=== PATIENT | male | born 1970 | race Caucasian/White ===

== ENCOUNTER 2019-08-04 09:00 | Outpatient (RCR) | payer OTHER, SELFPAY ==
--- NOTE | 2019-07-01 13:57 | PCOTNOTE ---
Patient did not come to appointment today 07/01/19 and did not call.
--- NOTE | 2019-07-14 10:36 | OTOPEVAL ---
OT RE-EVALUATION AND POC UPDATE 07/14/19 Thank you for referring this patient to [facility]. Recommend continued skilled OT 1x/week for 4 weeks. Please review, sign, date and return this re-assessment summary ALEISHA. I agree with and certify that the following plan of care is medically necessary. Referring Physician Date Attending Provider: Reji Nix MD *OT Outpatient Re-Evaluation Therapy Assessment Status Assessment Status Re-evaluation Evaluation Information Diagnosis dislocated right thumb s/p closed reduction Onset initial injury: 03/29/19 Additional Evaluation Detail 05/28/19 - surgical repair of radial and ulnar collateral ligaments of the right thumb MCP, had c-wire across MCP joint x4 weeks 06/25/19 - c-wire removal Subjective Information Marcell presents today for re- Query Text:As Reported By Patient/ evaluation. He has not been to Family therapy since his initial evaluation on 06/20/19 due to cancellations. He reports no functional gains at this time as his hand continues to be stiff, edematous, and painful. He has been using compensatory techniques (using the left hand) for ADLs and cooking tasks. Pain Assessment Timing of Pain Assessment Timing of Pain Assessment Re-assessment Pain Scale Pain Scale Used Numeric (1 - 10) Self Report Pain Assessment Right Hand(s) Reported Pain Level 7 Pain Description Aching,Dull Pain Frequency Intermittent Current Pain Intensity 7 Lowest Pain Intensity 0 Greatest Pain Intensity 7 Pain Aggravating Factors Exercise/Activity,Lifting Pain Relief Interventions Used By Medication Patient Interventions Used By Clinicians Education,Exercise, Mobilization Upper Extremity Range of Motion Finger Range of Motion Right Reason Not Measured WNL/Right Thumb Range of Motion Right Thumb MCP Flexion - Active 30 Thumb MCP Flexion - Passive 35 Thumb MCP Extension - Active -25 Thumb MCP Extension - Passive -10 Thumb IP Flexion - Active 45 Thumb IP Flexion - Passive 55 Thumb IP Extension - Active -15 Thumb IP Extension - Passive 10 hyperextension Thumb Limitations Contracture,Edema,Muscle Weakness,Pain,Soft Tissue Restriction Thumb Range of Motion Comments CMC abduction: 50*
--- NOTE | 2019-07-28 10:02 | PCOTNOTE ---
Pt called and cancelled appt this date. Pt did not give a reason he cancelled.
--- NOTE | 2019-08-11 09:20 | PCOTNOTE ---
Patient did not show or call to cancel his re-evaluation this AM. Attempted to call patient and he did not answer. Left a voicemail about returning our call to reschedule his re-evaluation to continue treatment.
--- NOTE | 2019-08-29 13:47 | PCOTNOTE ---
OT DISCHARGE NOTE 08/29/2019 Marcell has not returned to therapy since 08/04/2019. He has had multiple cancellations and no shows. At this time he is being discharged from skilled OT with goals not met. Thank you for referring this patient to [facility]. Please review, sign, date and return this D/C Note ALEISHA. I agree with and certify that the following plan of care is medically necessary. Referring Physician Date Attending Provider: Reji Nix MD
== END 2019-08-29 15:02 | disposition home or self-care (01) ==
LOC: ANHOT 09:00
PROVIDERS: PCP Family Medicine; Visit Provider Plastic Surgery
DX: M25.641 Stiffness of right hand, not elsewhere classified (principal); Z98.890 Other specified postprocedural states
CPT/HCPCS: 97035; 97110; 97140; 97598

== ENCOUNTER 2020-05-11 10:54 | Emergency (ER) | payer BC, SELFPAY ==
[2020-05-11 11:05] VITALS: BP 159/94; PULSE 94; RESP 18; TEMP 36.3; O2SAT 99
--- NOTE | 2020-05-11 11:05 | ED.EAR ---
HPI - Ear Problem General Chief complaint: Ear Stated complaint: Ear problem Time Seen by Provider: 05/11/20 11:06 Source: patient and RN notes reviewed Mode of arrival: ambulatory Limitations: no limitations History of Present Illness HPI Narrative: 50-year-old male presents with concern for right ear pressure, decreased hearing. Denies ear pain. He denies rhinorrhea, nasal congestion, sore throat, fever, drainage from the ear. Reports he tried to clean out his ear with a high-pressure setting on his shower today without success. MD Complaint: ear pain Location: right ear Related Data Home Medications Medication Instructions Recorded Confirmed amitriptyline 50 mg PO DIRECTED 05/11/20 05/11/20 [id number]-[id number] 1 tablet PO DAILY 05/11/20 05/11/20 fenofibrate 160 mg PO DAILY 05/11/20 05/11/20 folic acid 1 mg PO DAILY 05/11/20 05/11/20 metoprolol succinate 200 mg PO DAILY 05/11/20 05/11/20 quetiapine 100 mg PO DAILY 05/11/20 05/11/20 Allergies Allergy/AdvReac Type Severity Reaction Status Date / Time No Known Allergies Allergy Other Uncoded 05/11/20 11:00 Review of Systems Review of Systems: Narrative: CONSTITUTIONAL: Denies malaise, chills, sweats, or fever. EYES: Denies visual changes, redness, or discharge. ENT: Denies rhinorrhea, congestion, sinus pain, or sore throat. Reports right ear pressure, decreased hearing, denies otalgia CARDIOVASCULAR: Denies chest pain, palpitations, or edema. RESPIRATORY: Denies cough or dyspnea. SKIN: Denies rash or itching. MUSCULOSKELETAL: Denies myalgia. NEUROLOGIC: Denies headache. All systems reviewed & are unremarkable except as noted in HPI and below PMFSH Comments At time of signature, agree with nursing past medical, surgical, social and family history. There is no relevant family history pertinent to the presenting complaint Exam Narrative: Exam Narrative: GENERAL: Well-appearing, well-nourished, and in no acute distress. HEAD: Normocephalic, atraumatic. EYES: PERRLA, conjunctivae clear ENT: Nares clear. Mucous membranes moist. TM pearly not visible due to cerumen impaction; no tragal tenderness. Oropharynx without erythema or lesions. Tonsils not enlarged and without exudate. NECK: Supple. No lymphadenopathy. CHEST: No respiratory distress. Speaks in full sentences. HEART: Regular rate and rhythm. SKIN: Warm, dry, no rash. NEURO: Alert and oriented x3. PSYCH: Normal mood and affect Course Course Emergency Course: Patient is aware of diagnosis, understands and agrees to treatment plan. Anticipatory guidance given. Patient agrees to follow-up as directed and is aware of reasons to seek care at the emergency department. Portions of this record may have been created with voice recognition software Vital Signs Vital signs: Vital Signs Temperature 97.4 F L 05/11/20 11:05 Pulse Rate 94 05/11/20 11:05 Respiratory Rate 18 05/11/20 11:05 Blood Pressure 159/94 H 05/11/20 11:05 Pulse Oximetry 99 05/11/20 11:05 Temperature 97.4 F L 05/11/20 11:05 Pulse Rate 94 05/11/20 11:05 Respiratory Rate 18 05/11/20 11:05 Blood Pressure 159/94 H 05/11/20 11:05 Pulse Oximetry 99 05/11/20 11:05 Reviewed. Procedures Ear Wax Removal Right Ear: Ear Wax Removal Date: 05/11/20 Ear Wax Removal Time: 11:20 Cerumenolytic Used: 5-10% Sodium Bicarb solution Results: Re-examined: some cerumen remains TM Examination: other (Unable to visualize TM) Ear Canal Exam: atraumatic Patient Tolerated Procedure: well Complications: no problems Technique: ear canal irrigated and ear canal curetted Medical Decision Making MDM Narrative Medical decision making narrative: Exam findings show no acute concerns or changes; patient is non-toxic appearing and is in no distress. Patient is appropriate for outpatient treatment and follow-up. Differential Diagnosis Differential Diagnosis: Otitis media, ot
== END 2020-05-11 12:12 | disposition home or self-care (01) ==
PROVIDERS: Emergency Provider Nurse Practitioner; PCP Family Medicine
DX: H61.21 Impacted cerumen, right ear (principal); I10 Essential (primary) hypertension; J45.909 Unspecified asthma, uncomplicated; M19.90 Unspecified osteoarthritis, unspecified site; F41.9 Anxiety disorder, unspecified; F32.9 Major depressive disorder, single episode, unspecified
CPT/HCPCS: 69210; 99212; A9270; G0463

== ENCOUNTER 2021-03-15 18:54 | Inpatient (IN) | payer BC, SELFPAY ==
--- NOTE | ~2021-03-15 | XR_ITS ---
EXAMINATION: XR chest 1V portable EXAM DATE: 03/15/2021 23:26 INDICATION: Altered mental status. TECHNIQUE: Portable AP frontal chest x-ray was obtained. Comparison is made to prior examination from 12/27/2015. FINDINGS: The lungs are clear. There are no pleural effusions. The cardiomediastinal silhouette is within normal limits. There is no pneumothorax suspected. The bones and soft tissues are unremarkab le. IMPRESSION: No acute cardiopulmonary findings. Reviewed, dictated and finalized at location G.
--- NOTE | ~2021-03-15 | MR_ITS ---
EXAMINATION: MR cervical spine wo con DATE: 03/22/2021 10:09 INDICATION: Weakness TECHNIQUE: Magnetic resonance imaging (MRI) of the cervical spine was performed without intravenous c ontrast. Sequences included sagittal T2-weighted FSE, sagittal T2-weighted FS FSE, sagittal T1-weight ed FSE, axial MERGE and axial T2-weighted FSE. COMPARISON: Cervical spine radiograph dated 05/13/2009 FINDINGS: Mild cervicothoracic levocurvature. Sagittal alignment is normal. Vertebral body heights are normal. There is diffuse red marrow reexpansion throughout the cervical spine is isointense on T1-weighted i mages to the cervical disks. Normal disc heights and signal. Cord signal intensity is normal. Cervica l soft tissues are unremarkable. Assessment for severity of facet and uncovertebral osteoarthritis is somewhat limited by motion artifact or blurring on multiple sequences. The following disc levels are specifically discussed: C2-C3: The disc does not extend beyond the endplate margin. There is no uncovertebral joint osteoarth ritis. There is mild to moderate right and mild left facet joint osteoarthritis. There is mild left n eural foraminal stenosis. There is no central canal stenosis. C3-C4: Disc is minimally bulging. There is mild right uncovertebral joint osteoarthritis. There is mi ld bilateral facet joint osteoarthritis. There is mild right neural foraminal stenosis. There is no c entral canal stenosis. C4-C5: Disc is mildly bulging. There is mild right and moderate left uncovertebral joint osteoarthrit is. There is mild to moderate bilateral facet joint osteoarthritis. There is mild bilateral neural fo raminal stenosis. There is minimal central canal stenosis. C5-C6: Disc is mildly bulging with annular fissure. There is mild right and moderate left uncovertebr al joint osteoarthritis. There is moderate right and severe left facet joint osteoarthritis. There is mild bilateral, right greater than left, neural foraminal stenosis. There is mild central canal sten osis. C6-C7: Disc is bulging with annular fissure and suggestion of a small central disc extrusion extendin g up to 4 mm caudal to the level of the superior endplate of C7. There is mild left and moderate righ t uncovertebral joint osteoarthritis. There is mild bilateral facet joint osteoarthritis. There is al tered left and mild to moderate right neural foraminal stenosis. There is mild central canal stenosis . C7-T1: Disc is minimally bulging. There is no uncovertebral joint osteoarthritis. There is mild left facet joint osteoarthritis. There is no neural foraminal stenosis. There is no central canal stenosis . IMPRESSION: 1. Mild to moderate cervical spondylosis. Assessment of severity of the facet and uncovertebral osteo arthritis is however somewhat limited by some motion artifact or blurring on multiple sequences. Reviewed, dictated and finalized at location A. IMPRESSION: 1. Mild to moderate cervical spondylosis. Assessment of severity of the facet a nd uncovertebral osteoarthritis is however somewhat limited by some motion elsa fact or blurring on multiple sequences.
--- NOTE | ~2021-03-15 | US_ITS ---
US renal BI 03/16/2021 09:21 Procedure: Realtime transabdominal ultrasound of the kidneys and bladder. Indication: Acute renal insufficiency Comparison: No prior studies for comparison. Findings: Renal echotexture is normal bilaterally without hydronephrosis, contour deforming mass or r enal calculus. The right kidney measures 8.4 cm and left kidney measures 9.9 cm. Bladder within norm al limits. Impression: 1: Unremarkable renal ultrasound. No stones, masses or hydronephrosis. Reviewed, dictated and finalized at location A. Impression: 1: Unremarkable renal ultrasound. No stones, masses or hydronephrosis.
--- NOTE | ~2021-03-15 | CT_ITS ---
EXAMINATION: CT lumbar spine gela joy EXAM DATE: 03/18/2021 16:01 INDICATION: Found down, weakness TECHNIQUE: Spiral CT lumbar spine was performed without contrast. Axial, coronal and sagittal images of the lumbar spine were reviewed. The dose-length product (DLP) for this examination was 253.96 mGy- cm. The exposure was tailored according to patient size (auto mA exposure control), and iterative re construction (ASIR) was used as additional dose reduction technique. There is no prior study for hernandez vizcaino. FINDINGS: There is no evidence of acute lumbar fracture. There is no disc space widening or traumatic vertebra l body subluxation suspected. Paraspinal soft tissue is unremarkable. There is mild to moderate dis c disease at L5-S1 with 3 mm retrolisthesis. Mild disc disease at the other lumbar levels. Mild mid a nd lower lumbar facet arthropathy. There is moderate left neural foraminal stenosis L5-S1, mild on th e right and bilaterally at L4-5. There is no hydronephrosis. Some nonspecific lower retroperitoneal fat stranding. A detailed level by level evaluation of spondylosis can be added as addendum if requested. IMPRESSION: 1. L5-S1 grade 1 retrolisthesis, moderate left neural foraminal stenosis. 2. Otherwise mild lumbar spondylosis. No acute lumbar findings. 3. Nonspecific lower retroperitoneal fat stranding. No hydronephrosis. Reviewed, dictated and finalized at location A.
--- NOTE | ~2021-03-15 | CT_ITS ---
EXAMINATION: [facility] EXAM DATE: 03/15/2021 23:54 INDICATION: Altered mental status. TECHNIQUE: Spiral CT of the head was performed without contrast. Axial, coronal and sagittal images were reviewed. The dose-length product (DLP) for this examination was 605.33 mGy-cm. The exposure w as tailored according to patient size, and iterative reconstruction (ASIR) was used as additional dos e reduction technique. Comparison is made to prior examination from 08/04/2017. FINDINGS: There is no acute intraparenchymal hemorrhage. No evidence of intraparenchymal brain mass lesion. Mild to moderate cerebral atrophy. No evidence of acute infarction. There is no mass effect or midline shift. The ventricles are normal in size. There are no extra-axial collections. There a re no acute calvarial fractures. The orbits are unremarkable. Soft tissue is unremarkable. The visu alized sinuses and mastoid air cells are well aerated. IMPRESSION: 1. No acute intracranial findings. Reviewed, dictated and finalized at location G.
--- NOTE | ~2021-03-15 | MR_ITS ---
EXAMINATION: MR brain/brain stem wo con DATE: 03/16/2021 13:13 INDICATION: Generalized weakness and alteration of awareness. TECHNIQUE: Magnetic resonance imaging (MRI) of the brain and brainstem was performed without intraven ous contrast. Sequences included sagittal and axial T1-weighted SE, axial diffusion-weighted FS SE, a xial T2*-weighted GRE, axial T2-weighted FLAIR, and axial T2-weighted FSE. Apparent diffusion coeffic ient (ADC) maps were created. COMPARISON: Head CT dated 03/15/2021 FINDINGS: There are no areas of restricted diffusion to suggest acute infarction. No intracranial hemorrhage or abnormal intracranial mass lesion. There are scattered areas of nonspecific increased T2-weighted si gnal intensity in the cerebral white matter, predominantly involving the periventricular white matter . There are no intraparenchymal signal abnormalities seen on the other pulse sequences. Symmetric pro minence of the sulci and ventricles consistent with mild diffuse cerebral volume loss which is dispro portionate for age and which may be related to provided history of alcohol dependence. There are no a bnormal extra-axial fluid collections. Flow voids are seen in the cerebral arteries on the T2-weighte d sequences consistent with their expected patency. Small right mastoid effusion. Visualized orbits a nd soft tissues are unremarkable. IMPRESSION: 1. No acute intracranial process. Reviewed, dictated and finalized at location A.
--- NOTE | ~2021-03-15 | MR_ITS ---
EXAMINATION: MR lumbar spine [facility] EXAM DATE: 03/19/2021 14:47 INDICATION: Fell last night, urinary retention. TECHNIQUE: Multi-sequential, multiplanar MR images of the lumbar spine were obtained without contrast . Sagittal T1, T2, T2 fat saturation images. Axial T2 weighted images. Correlation is made to CT julian ar spine 03/18/2021. FINDINGS: There is 3 mm retrolisthesis L5 on S1 with mild to moderate disc disease at this level. The vertebral bodies are otherwise aligned. The vertebral body and disc heights are otherwise well maint ained. There are no suspicious marrow signal abnormalities. Paraspinal soft tissue is unremarkable. T he conus medullaris terminates at the L1/2 level and has normal signal intensity and morphology. Inci dental note made of severely distended bladder. Level by level evaluation: T12-L1: Disc does not extend beyond the endplate margin. Facet arthropathy: None. Neural foraminal stenosis: No stenosis. Central canal stenosis: No stenosis. L1-L2: Disc does not extend beyond the endplate margin. Facet arthropathy: None. Neural foraminal stenosis: No stenosis. Central canal stenosis: No stenosis. L2-L3: Disc does not extend beyond the endplate margin. Facet arthropathy: Mild. Neural foraminal stenosis: No stenosis. Central canal stenosis: No stenosis. L3-L4: There is a minimal diffuse disc bulge. Facet arthropathy: Mild. Neural foraminal stenosis: No stenosis. Central canal stenosis: No stenosis. L4-L5: There is a minimal diffuse disc bulge. Facet arthropathy: Mild. Neural foraminal stenosis: Mild bilateral. Central canal stenosis: No stenosis. L5-S1: There is a mild diffuse disc bulge. Facet arthropathy: Mild. Neural foraminal stenosis: Mild to moderate left, mild right. Central canal stenosis: Mild. IMPRESSION: 1. Severely distended bladder. 2. L5-S1 grade 1 retrolisthesis, mild to moderate spondylosis. 3. No significant central canal stenosis. Normal conus medullaris signal. Reviewed, dictated and finalized at location A.
--- NOTE | ~2021-03-15 | XR_ITS ---
EXAMINATION: XR chest 2V EXAM DATE: 03/19/2021 14:51 INDICATION: Abnormal physical exam, lung crackles. TECHNIQUE: Frontal and lateral projections of the chest obtained and reviewed. Comparison is made to prior examination from 03/15/2021. FINDINGS: The lungs are clear. There are no pleural effusions. The cardiomediastinal silhouette is within normal limits. There is no pneumothorax suspected. There is an old left midclavicular shaft fracture. IMPRESSION: No acute cardiopulmonary findings. Reviewed, dictated and finalized at location A.
[2021-03-15 18:53] VITALS: BP 157/98; PULSE 115; RESP 24; TEMP 36.6; O2SAT 100
[2021-03-15 19:30] LABS: Basophils Absolute Auto 0.1 K/mm3 (0.0-0.1); Basophils Percent Auto 0.5 % (0.2-1.2); Hematocrit 47.9 % (42.0-52.0); Hemoglobin 16.8 g/dL (14.0-18.0); Immature Granulocyte Absolute 0.37 K/mm3 (0.00-0.031); Immature Granulocyte Percent A 2.8 % (0-0.5); Lymphocytes Absolute Auto 1.81 K/mm3 (0.9-3.2); Lymphocytes Percent Auto 13.6 % (18.3-44.2); Mean Corpuscular HGB Conc 35.1 g/dl (32-36); Mean Corpuscular Hemoglobin 31.3 pg (26-34); Mean Corpuscular Volume 89.2 fl (80-100); Monocytes Absolute Auto 1.6 K/mm3 (0.1-0.6); Monocytes Percent Auto 12.1 % (2.6-8.5); Neutrophils Absolute Auto 9.5 K/mm3 (1.3-6.7); Nucleated Red Blood Cells Perc 0.2 % (0.0-0.2); Platelet Count Result 189 k/mm3 (150-375); Red Blood Count 5.37 M/mm3 (4.6-6.20); White Blood Count 13.3 K/mm3 (4.5-10.0)
[2021-03-15 19:39] LABS: Ethanol < 10 mg/dL (<10)
[2021-03-15 19:40] LABS: Alanine Aminotransferase 76 U/L (4-50); Albumin Level 4.7 g/dL (3.5-5.1); Alkaline Phosphatase 92 U/L (38-126); Anion Gap 18 mmol/L (8-16); Aspartate Amino Transferase 43 U/L (17-59); Bilirubin,Total 1.2 mg/dL (0.2-1.3); Blood Urea Nitrogen 84 mg/dL (9-20); Calcium 11.7 mg/dL (8.4-10.2); Carbon Dioxide 17 mmol/L (22-30); Chloride 105 mmol/L (98-107); Estimated CRCL calculation 26 ml/min; Estimated Glomerular Filt Rate 28; Glucose 153 mg/dL (65-110); Potassium 3.9 mmol/L (3.4-5.0); Sodium 140 mmol/L (137-145)
[2021-03-15 19:49] VITALS: BP 121/89; PULSE 114; RESP 29; O2SAT 99
[2021-03-15] MEDS: SODIUM CHLORIDE 0.9% IV 1,000 ML 150 ML IV CONT (19:50)
--- NOTE | 2021-03-15 20:42 | ED.GENADULT ---
HPI - General Adult General Chief complaint: Alcohol Stated complaint: ETOH Time Seen by Provider: 03/15/21 19:11 Source: EMS Mode of arrival: EMS Limitations: other (Poor Historian) History of Present Illness HPI narrative: 50-year-old with a history of alcohol abuse was brought in by EMS from home with complaints of not eating and not able to take care of himself for past few days. As per the EMS neighbors called 911 as patient has not come out of the house for past few days upon their arrival to the their house they found him laying on the couch soaking in urine. Patient presently has no complaints. He is a poor historian he only gives one-word answer for all the questions asked. Onset (ago): week(s) Related Data Home Medications Medication Instructions Recorded Confirmed amitriptyline 50 mg PO DIRECTED 05/11/20 05/11/20 [id number]-whaxcyslzcrwi-oyjr 1 tablet PO DAILY 05/11/20 05/11/20 fenofibrate 160 mg PO DAILY 05/11/20 05/11/20 folic acid 1 mg PO DAILY 05/11/20 05/11/20 metoprolol succinate 200 mg PO DAILY 05/11/20 05/11/20 quetiapine 100 mg PO HS 05/11/20 05/11/20 clonazepam DAILY 03/15/21 Allergies Allergy/AdvReac Type Severity Reaction Status Date / Time No Known Allergies Allergy Other Uncoded 05/11/20 11:00 Review of Systems Constitutional: Constitutional: Reports no additional constitutional complaints Eyes: Eyes: Reports no additional eye complaints Cardiovascular: Cardiovascular: Reports no additional cardiovascular complaints Respiratory: Respiratory: Reports no additional respiratory complaints Gastrointestinal: Gastrointestinal: Reports no additional gastrointestinal complaints Musculoskeletal: Musculoskeletal: Reports no additional musculoskeletal complaints Neurologic: Reports system reviewed and no additional complaints, except as documented Exam Narrative: Exam Narrative: GENERAL: Well-appearing, thin and in no acute distress. HEAD: Normocephalic, atraumatic. EYES: PERRLA and EOMI.. NECK: Supple. CHEST: Clear to auscultation. No respiratory distress. HEART: Regular rate and rhythm. No murmur heard. Normal peripheral pulses. ABDOMEN: Soft, nontender, nondistended, normal active bowel sounds. EXTREMITIES: Normal range of motion. No edema. SKIN: Warm, dry, no rash. NEURO: No focal deficits. Alert and oriented x3. PSYCH: Normal mood and affect. Course Course Emergency Course: Informed patient about his lab work. Will admit him to the hospital consult social services counselor in the morning. I discussed with Dr. Almanzar who agreed to admit the patient. Vital Signs Vital signs: Vital Signs Temperature 36.6 C 03/15/21 18:53 Pulse Rate 115 H 03/15/21 18:53 Respiratory Rate 24 H 03/15/21 18:53 Blood Pressure 157/98 H 03/15/21 18:53 Pulse Oximetry 100 03/15/21 18:53 Temperature 36.6 C 03/15/21 18:53 Pulse Rate 114 H 03/15/21 19:49 Respiratory Rate 29 H 03/15/21 19:49 Blood Pressure 121/89 03/15/21 19:49 Pulse Oximetry 99 03/15/21 19:49 Medical Decision Making Vital Signs Vital Signs: Vital Signs Temperature 36.6 C 03/15/21 18:53 Pulse Rate 115 H 03/15/21 18:53 Respiratory Rate 24 H 03/15/21 18:53 Blood Pressure 157/98 H 03/15/21 18:53 Pulse Oximetry 100 03/15/21 18:53 Temperature 36.6 C 03/15/21 18:53 Pulse Rate 114 H 03/15/21 19:49 Respiratory Rate 29 H 03/15/21 19:49 Blood Pressure 121/89 03/15/21 19:49 Pulse Oximetry 99 03/15/21 19:49 Lab Data Result diagrams: 03/15/21 19:25 03/15/21 19:25 Labs: Lab Results 03/15/21 03/15/21 03/15/21 Range/Units 19:25 19:25 19:25 WBC 13.3 H (4.5-10.0) K/mm3 RBC 5.37 (4.6-6.20) M/mm3 Hgb 16.8 (14.0-18.0) g/dL Hct 47.9 (42.0-52.0) % MCV 89.2 (80-100) fl MCH 31.3 (26-34) pg MCHC 35.1 (32-36) g/dl RDW 13.0 (11.5-14.5) % Plt Count 189 (150-375) k/mm3 MPV 11.0 H (7.4-10.4) fl Immature Gran
[2021-03-15 21:57] VITALS: BP 111/84; PULSE 112; RESP 17; O2SAT 98
[2021-03-15] MEDS: THIAMINE HCL INJ 100 MG, FOLIC ACID INJ 1 MG, MULTIVITAMINS-12 INJ VIAL 1 5 ML, MULTIVI... IV CONT (22:10)
[2021-03-15] MEDS: FAMOTIDINE 20 MG/2 ML VIAL IV PUSH (22:24)
[2021-03-15 22:33] VITALS: BP 120/86; PULSE 107; RESP 21; O2SAT 98
[2021-03-15 22:45] VITALS: BP 136/82; PULSE 99; RESP 20; TEMP 37.3; O2SAT 100; BMI 19.1
[2021-03-15 23:04] VITALS: PULSE 72
--- NOTE | 2021-03-15 23:07 | PM.IMHP ---
H&P: HPI History of Present Illness Date/Time: 03/15/21 23:07 Chief Complaint: WEAKNESS Narrative: THIS IS A 50-YEAR-OLD MALE WITH PAST MEDICAL HISTORY SIGNIFICANT FOR ALCOHOL DEPENDENCE, DEPRESSION, MIGRAINE HEADACHE. PATIENT STATES THAT HE CAME TO THE EMERGENCY ROOM DUE TO GENERALIZED WEAKNESS HE HAS NOT BEEN ABLE TO GET UP HE HAS BEEN DRINKING HE STATES THAT HE DRINKS MOST OF THE DAY EVERY DAY HAS NOT BEEN EATING HE DENIES ANY HALLUCINATIONS FORMICATION TREMOR NAUSEA VOMITING ABDOMINAL PAIN FEVERS RIGORS OR CHILLS. PRELIMINARY WORKUP WAS SIGNIFICANT FOR ELEVATED CREATININE. Review of Systems Review of Systems: Narrative: presented to the emergency room due to generalized weakness has been drinking all day long for several days Constitutional: Constitutional: Denies chills, Denies fever(s), Denies malaise and Reports weakness Eyes: Eyes: Denies change in vision ENT: Denies dysphagia, Denies nasal congestion, Denies nasal discharge, Denies nasal obstruction and Denies odynophagia Cardiovascular: Cardiovascular: Denies irregular heart rhythm, Denies radiating jaw, neck or arm pain, Denies palpitations, Denies dyspnea on exertion and Denies orthopnea Respiratory: Respiratory: Denies cough Gastrointestinal: Gastrointestinal: Denies diarrhea, Denies nausea and Denies vomiting Genitourinary: Genitourinary: Reports no additional male genitourinary complaints Musculoskeletal: Musculoskeletal: Reports muscle weakness Integumentary/Breasts: Skin/Breast: Reports system reviewed and no additional complaints, except as docu Neurologic: Denies focal weakness, Denies Sensory deficit (Neuro) and Denies tingling Psychiatric: Psychiatric: Reports no additional psychiatric complaints Endocrine: Endocrine: Reports no additional endocrine complaints Hematologic/Lymphatic: Hematologic/Lymphatic: Reports no additional hematologic/lymphatic complaints Allergic/Immunologic: Allergic/Immunologic: Reports no additional allergic/immunologic complaints Meds Home Medications and Allergies Home Medications Medication Instructions Recorded Confirmed Type amitriptyline 50 mg PO DIRECTED 05/11/20 05/11/20 History lbqwtuxnrm-khqxjdwbezaup-plii 1 tablet PO DAILY 05/11/20 05/11/20 History fenofibrate 160 mg PO DAILY 05/11/20 05/11/20 History folic acid 1 mg PO DAILY 05/11/20 05/11/20 History metoprolol succinate 200 mg PO DAILY 05/11/20 05/11/20 History quetiapine 100 mg PO HS 05/11/20 05/11/20 History clonazepam DAILY 03/15/21 History Allergies Allergy/AdvReac Type Severity Reaction Status Date / Time No Known Allergies Allergy Other Uncoded 05/11/20 11:00 Vital Signs Vital Signs - 24 hr 03/15/21 18:53 03/15/21 19:49 03/15/21 21:57 Temperature 98 F Pulse Rate 115 H 114 H 112 H Respiratory Rate 24 H 29 H 17 Blood Pressure 157/98 H 121/89 111/84 Pulse Oximetry 100 99 98 03/15/21 22:33 Temperature Pulse Rate 107 H Respiratory Rate 21 H Blood Pressure 120/86 Pulse Oximetry 98 Exam Narrative: Exam Narrative: laying in roseline Const: General: comfortable, no acute distress, well developed, ill appearing chronically, intoxicated appearing and poor hygiene Nutritional Appearance: average body habitus Orientation/consciousness: patient oriented x3 HENMT: Head: normal to inspection, normocephalic and atraumatic Ears: hearing grossly normal bilaterally General nose exam: Normal external nose present Face and sinus: normal facial exam Eyes: General: appearance normal, both eyes and all related structures Sclera: sclerae normal Pupils: Equal, round and reactive pupils present EOM: EOMs intact bilaterally Neck: Neck: full ROM, no lymphadenopathy and no JVD Thyroid: thyroid normal Lymphatic: no lymphadenopathy noted Resp: Effort & Inspection: normal respiratory effort and able to speak in complete sentences Auscultation: clear to auscultation bilaterally Cardio: Jugular venous distension: no JVD Rate: regular
--- NOTE | 2021-03-15 23:32 | ADMGEN ---
03/15/21 at 2245--This patient, Marcell Almonte, was admitted to [facility] Surg Room 311-01. Patient/family oriented to hospital policies and general routines including ID bracelet, bed and alarms, visiting hours, pain management, procedures, bathroom and other care routines, personal items, smoking policy, room service/diet, and visiting hours. Information on how to activate the Rapid Response Team has been discussed. Patient/Family are encouraged to report perceived risks to care and to ask questions if they do not understand what they are told or what they should do. TDialRNC
[2021-03-15] MEDS: SODIUM CHLORIDE 0.9% IV 1,000 ML 125 ML IV CONT (23:41)
[2021-03-16] VITALS (9 sets, daily range): BP systolic 110–154; BP diastolic 67–87; PULSE 81–112; RESP 16–20; TEMP 36.3–37.1; O2SAT 100
[2021-03-16 07:33] LABS: Anion Gap 8 mmol/L (8-16); Blood Urea Nitrogen 59 mg/dL (9-20); Calcium 9.7 mg/dL (8.4-10.2); Carbon Dioxide 21 mmol/L (22-30); Chloride 113 mmol/L (98-107); Estimated CRCL calculation 36 ml/min; Estimated Glomerular Filt Rate 50; Glucose 94 mg/dL (65-110); Potassium 3.3 mmol/L (3.4-5.0); Sodium 142 mmol/L (137-145)
[2021-03-16 08:40] LABS: Alanine Aminotransferase 51 U/L (4-50); Albumin Level 3.4 g/dL (3.5-5.1); Alkaline Phosphatase 66 U/L (38-126); Aspartate Amino Transferase 31 U/L (17-59); Bilirubin,Total 0.9 mg/dL (0.2-1.3)
[2021-03-16 08:53] LABS: Parathyroid Intact 20.4 pg/mL (7.5-53.5)
[2021-03-16 08:58] LABS: Vitamin D 25 Hydroxy 37.2 ng/mL
[2021-03-16] MEDS: FAMOTIDINE 20 MG/2 ML VIAL IV PUSH ×2 (09:35→21:33)
--- NOTE | 2021-03-16 10:20 | PCOTNOTE ---
Attempted OT evaluation, per RN hold therapy today due to patient being lethargic, will follow and attempt at later time.
--- NOTE | 2021-03-16 10:27 | ECG_ITS ---
Measurements Intervals [place] Rate: 78 P: 85 OH: 126 QRS: 73 QRSD: 96 T: 105 QT: 438 QTc: 501 Interpretive Statements SINUS RHYTHM BORDERLINE T WAVE ABNORMALITY- ANT/HIGH LAT LEADS BORDERLINE ECG Electronically Signed On 03-16-2021 11:41:18 CDT by Blayne Perez D.O.
[2021-03-16 10:55] LABS: Ammonia < 9 umol/L (9-30); Lactic Acid Reflex 1.1 mmol/L (0.7-2.1)
[2021-03-16 10:58] LABS: Alveolar/Arterial O2 Gradient 38.5 mmHg; Base Excess ABG -4.1 mEq/l (+/-2.0); Carboxyhemoglobin 0.3 % THb (0-2.0); Device ROOM AIR; Fractional Inspired Oxygen 21 %; HCO3 ABG 18.9 mEq/l (22.0-26.0); Methemoglobin ABG 0.1 %THb (0-1.5); Oxygen Content ABG 18.3 %vol (16.0-22.0); Oxygen Saturation ABG 95.8 % (95.0-100.0); Oxyhemoglobin 93.5 % THb (90.0-100.0); PCO2 ABG 29.1 mmHg (35.0-45.0); PO2 ABG 76.4 mmHg (80.0-100.0); PO2 FiO2 Ratio Arterial Blood 3.64 %; Reduced Hemoglobin 6.1 %THb (0-5.0); Site Drawn RIGHT BRACHIAL; Total Hemoglobin 13.9 g/dL (12.0-18.0)
--- NOTE | 2021-03-16 11:02 | PM.IMPN ---
Progress Note: A&P Assessment and Plan (1) Acute encephalopathy: Code(s): G93.40 - Encephalopathy, unspecified Status: Acute Assessment and Plan: Unclear etiology at this time -CT brain yesterday had no acute pathology -abg with no significant abnormalities -lactic acid and ammonia normal -Etoh neg yesterday -check UA, EEG, mag, TSH and EKG -Monitor closely -consider repeat head CT if it persists (2) Alcohol withdrawal syndrome: Qualifiers: Complication of substance-induced condition: uncomplicated Qualified Code(s): F10.230 - Alcohol dependence with withdrawal, uncomplicated Code(s): F10.239 - Alcohol dependence with withdrawal, unspecified Status: Acute Assessment and Plan: Will do ativan PRN -consider librium if CIWA increases. Currently he is at 2. (3) RENETTA (acute kidney injury): Code(s): N17.9 - Acute kidney failure, unspecified Status: Acute Assessment and Plan: Cr 1.5 and improving with IV fluids -likely due to dehydration -check UA -renal us okay -continue IV fluids (4) Alcohol dependence: Code(s): F10.20 - Alcohol dependence, uncomplicated Status: Acute Assessment and Plan: As above (5) Generalized weakness: Code(s): R53.1 - Weakness Status: Acute Assessment and Plan: Will do PT and OT -likely due to dehydration and alcohol abuse -stroke less likely, monitor neuro exam Additional Plan calcium now normal, was likely high on admission due to dehydration. urine catheter to observe input and outpt Time Spent With Patient Time with patient: 25 - 35 minutes Subjective Date/time seen: 03/16/21 11:02 Interval history: Pt is a 50 y/o male here for AMS, dehydration and weakness. Pt was seen today and is non verbal with me. He follows simple commands such as squeezing my fingers and wiggling toes and nods occasionally to questions but not consistently. RN states he has been like this since the morning. I called the sister, Aminta, who states pt is usually 'normal' and answers questions and is independent at home. She states she last talked to him was sunday and he had some abdominal pain and vomiting but no other symptoms. He drinks about 20 beers a day and does not do drugs according to the sister. No hx of stroke or seizure. Review of Systems Review of Systems: All systems reviewed & are unremarkable except as noted in HPI and below Exam Narrative: Exam Narrative: General: underweight pt resting in bed in NAD but not verbally communicating HEENT: normocephalic Neck: supple Neuro: Pt awakens to his name but does not track you or answer questions. He is able to do small tasks like squeezing hand and wiggling toes. He does not participate in a cranial nerve neuro exam. CV:RRR Resp:CTA Abd: Soft, non distended. No pain to palpation. Positive bowel sounds Extremities: No swelling, erythema, or pain to palpation. Objective Data Vital Signs Vital Signs: Vital Signs - 24 hr 03/15/21 18:53 03/15/21 19:49 03/15/21 21:57 Temperature 98 F Pulse Rate 115 H 114 H 112 H Pulse Rate [Left Radial] Respiratory Rate 24 H 29 H 17 Blood Pressure 157/98 H 121/89 111/84 Pulse Oximetry 100 99 98 03/15/21 22:33 03/15/21 22:45 03/15/21 23:04 Temperature 99.2 F Pulse Rate 107 H 99 Pulse Rate [Left Radial] 72 Respiratory Rate 21 H 20 Blood Pressure 120/86 136/82 Pulse Oximetry 98 100 03/16/21 00:00 03/16/21 04:00 03/16/21 08:00 Temperature 98.8 F 97.5 F L Pulse Rate 87 81 Pulse Rate [Left Radial] 82 82 Respiratory Rate 18 18 Blood Pressure 154/77 H 132/76 Pulse Oximetry 100 100 Meds/Results Medications: Active Medications Generic Name Dose Route Start Last Admin Trade Name Mitra PRN Reason Stop Dose Admin Acetaminophen 650 mg 03/15/21 20:48 Acetaminophen 325 Mg Tablet PO Q4H PRN Mild Pain (1-3) or Fever Famotidine 20 mg 03/15
[2021-03-16] MEDS: SODIUM CHLORIDE 0.9% IV 1,000 ML 125 ML IV CONT ×2 (11:22→21:12)
[2021-03-16] MEDS: THIAMINE HCL 200 MG/2 ML VIAL 100 MG IV PUSH (11:22)
[2021-03-16 11:26] LABS: Basophils Percent Auto 0.3 % (0.2-1.2); Eosinophils Percent Auto 0.1 % (0-4.4); Hematocrit 41.5 % (42.0-52.0); Hemoglobin 13.9 g/dL (14.0-18.0); Immature Granulocyte Absolute 0.26 K/mm3 (0.00-0.031); Immature Granulocyte Percent A 2.8 % (0-0.5); Lymphocytes Percent Auto 24.6 % (18.3-44.2); Mean Corpuscular HGB Conc 33.5 g/dl (32-36); Mean Corpuscular Hemoglobin 31.4 pg (26-34); Mean Corpuscular Volume 93.7 fl (80-100); Mean Platelet Volume 10.9 fl (7.4-10.4); Monocytes Absolute Auto 0.9 K/mm3 (0.1-0.6); Monocytes Percent Auto 9.2 % (2.6-8.5); Neutrophils Absolute Auto 5.9 K/mm3 (1.3-6.7); Platelet Count Result 142 k/mm3 (150-375); Red Blood Count 4.43 M/mm3 (4.6-6.20); Red Cell Distribution Width 13.1 % (11.5-14.5); White Blood Count 9.4 K/mm3 (4.5-10.0)
[2021-03-16 11:33] LABS: Magnesium 2.6 mg/dL (1.6-2.3)
[2021-03-16] MEDS: FOLIC ACID 1 MG/0.2 ML INJ IV PUSH (11:33)
[2021-03-16 11:47] LABS: Add Urine Microscopic? YES; Appearance Urine Cloudy (Clear); Bacteria Urine 3+ /hpf; Bilirubin Urine Negative (Negative); Blood Urine 1+ (Negative); Color Urine Amber (Yellow); Glucose Urine UA Negative (Negative); Ketones Urine Negative (Negative); Leukocyte Esterase Ur 2+ LEU/UL (Negative); Mucus Urine Rare /lpf; Nitrate Urine Positive (Negative); Protein Urine Negative (Negative); Specific Grav Ur 1.019 (1.001-1.035); Squamous Epithelial Cell Urine Rare /hpf (Few); WBC Urine 31-50 /hpf
[2021-03-16 11:53] LABS: Creatinine Urine 123.9 mg/dL
[2021-03-16 12:00] LABS: Amphetamine Screen Urine Negative (Negative); Barbiturate Screen Urine Negative (Negative); Benzodiazepines Screen Urine Negative (Negative); Cannabinoid Screen Urine Negative (Negative); Cocaine Screen Urine Negative (Negative); Methadone Screen Urine Negative (Negative); Opiate Screen Urine Negative (Negative); Phencyclidine Screen Urine Negative (Negative)
[2021-03-16 12:10] LABS: Troponin I < 0.012 ng/mL (0.000-0.034)
[2021-03-16] MEDS: PANTOPRAZOLE SODIUM IV 40 MG VIAL IV PUSH ×2 (12:18→21:33)
[2021-03-16 12:19] LABS: Sodium Urine Random < 5 meq/L
[2021-03-16] MEDS: KCL 20 MEQ/SW 100 ML 100 ML 50 MEQ IVPB (12:19)
[2021-03-17] VITALS (8 sets, daily range): BP systolic 103–140; BP diastolic 56–75; PULSE 68–96; RESP 14–18; TEMP 36.1–36.6; O2SAT 96–100; BMI 17.4
[2021-03-17] MEDS: SODIUM CHLORIDE 0.9% IV 1,000 ML 125 ML IV CONT ×3 (05:12→20:47)
[2021-03-17 06:40] LABS: Hemoglobin 10.5 g/dL (14.0-18.0); Immature Platelet Fraction Pct 5.5 % (0.9-11.2); Mean Corpuscular HGB Conc 32.8 g/dl (32-36); Mean Corpuscular Hemoglobin 31.7 pg (26-34); Mean Corpuscular Volume 96.7 fl (80-100); Mean Platelet Volume 11.1 fl (7.4-10.4); Platelet Count Result 95 k/mm3 (150-375); Red Blood Count 3.31 M/mm3 (4.6-6.20); Red Cell Distribution Width 13.1 % (11.5-14.5); White Blood Count 5.3 K/mm3 (4.5-10.0)
[2021-03-17 07:02] LABS: Alanine Aminotransferase 51 U/L (4-50); Albumin Level 2.7 g/dL (3.5-5.1); Alkaline Phosphatase 54 U/L (38-126); Anion Gap 5 mmol/L (8-16); Aspartate Amino Transferase 48 U/L (17-59); Bilirubin,Total 0.6 mg/dL (0.2-1.3); Blood Urea Nitrogen 26 mg/dL (9-20); Carbon Dioxide 22 mmol/L (22-30); Chloride 118 mmol/L (98-107); Estimated CRCL calculation 42 ml/min; Estimated Glomerular Filt Rate 59; Glucose 76 mg/dL (65-110); Magnesium 2.1 mg/dL (1.6-2.3); Potassium 3.4 mmol/L (3.4-5.0); Sodium 145 mmol/L (137-145)
[2021-03-17 07:19] LABS: Partial Thromboplastin Time 23.4 SECONDS (22.3-36.8); Prothrombin Time 12.7 Seconds (11.1-14.7)
[2021-03-17] MEDS: FOLIC ACID 1 MG/0.2 ML INJ IV PUSH (09:26)
[2021-03-17] MEDS: PANTOPRAZOLE SODIUM IV 40 MG VIAL IV PUSH ×2 (09:27→20:34)
[2021-03-17] MEDS: FAMOTIDINE 20 MG/2 ML VIAL IV PUSH ×2 (09:27→20:34)
[2021-03-17] MEDS: THIAMINE HCL 200 MG/2 ML VIAL 100 MG IV PUSH (09:27)
--- NOTE | 2021-03-17 09:36 | WPDNEUROLOGY ---
Neurology EEG Report General Information Date of Study: 03/17/21 TEST EEG DIAGNOSIS change in the mental status and alcohol withdrawal. CONDITION OF RECORDING Sleep EEG NUMBER [id number] CLINICAL HISTORY no particular history was available patient slept throughout the setup and tracing EEG was ordered because of the change in the mental status and withdrawal from alcohol EEG DESCRIPTION whole record consists of low-voltage beta activity admixed with low to medium voltage 5 to 7 hertz per 2nd theta and 3 to 4 hertz per 2nd delta activity intermittently IV pump artifacts and eye movement artifacts were seen throughout the tracing hyperventilation not done. Photic stimulation not done. Non paroxysmal. Nonfocal. Nonlateralizing. IMPRESSION Abnormal record due to presence of bihemispheric theta and delta activity compatible with metabolic encephalopathy or postictal state.there is no evidence of paroxysmal activity throughout the tracing.
--- NOTE | 2021-03-17 11:10 | PM.IMPN ---
Progress Note: A&P Assessment and Plan (1) Acute encephalopathy: Code(s): G93.40 - Encephalopathy, unspecified Status: Acute Assessment and Plan: Resolved. Likely due to severe dehydration, possible UTI and possibly alcohol withdraw -CT brain and MRI had no acute pathology -EEG pending, pt has a hx of alcohol withdraw sz -abg with no significant abnormalities -lactic acid and ammonia normal -UA suspicious for UTI, await urine and blood cultures -Monitor closely, likely d/c tomorrow if blood cx neg and UA back with no further symptoms (2) Alcohol withdrawal syndrome: Qualifiers: Complication of substance-induced condition: uncomplicated Qualified Code(s): F10.230 - Alcohol dependence with withdrawal, uncomplicated Code(s): F10.239 - Alcohol dependence with withdrawal, unspecified Status: Acute Assessment and Plan: Will do ativan PRN -consider librium if CIWA increases. Currently he is at 1. (3) RENETTA (acute kidney injury): Code(s): N17.9 - Acute kidney failure, unspecified Status: Acute Assessment and Plan: Cr better today with IV fluids -likely due to dehydration -renal us okay -continue IV fluids (4) Alcohol dependence: Code(s): F10.20 - Alcohol dependence, uncomplicated Status: Acute Assessment and Plan: As above (5) Generalized weakness: Code(s): R53.1 - Weakness Status: Acute Assessment and Plan: Will do PT and OT -likely due to dehydration and alcohol abuse -stroke less likely, monitor neuro exam (6) Pyuria: Code(s): R82.81 - Pyuria Status: Acute Assessment and Plan: continue ceftriaxone -await cultures Additional Plan calcium now normal, was likely high on admission due to dehydration. urine catheter d/c Subjective Date/time seen: 03/17/21 11:10 Interval history: Pt is a 50 y/o male here for AMS, dehydration and weakness. Pt was seen today and back to baseline. He has no complaints. He doesn't remember much of what happened yesterday. He does remember bits and pieces. His only complaint is that he is very hungry. He denies CP, SOB, fevers, chills, nausea, vomiting, diarrhea, constipation, or abdominal pain. He states he has a hx of seizure from ETOH withdraw. He has no plans to quit drinking but plans to cut back. He says he drinks 10 beers from morning until night and I recommend he start with 8 and he decrease by 2 beers every week. He is going to try this althought doesn't ever think he will get to zero. Exam Narrative: Exam Narrative: General: underweight pt resting in bed in NAD HEENT: normocephalic, poor dentition Neck: supple Neuro: A&o x 4. CN 2-12 intact. Strength 5/5 in UE and LE CV:RRR Resp:CTA Abd: Soft, non distended. No pain to palpation. Positive bowel sounds Extremities: No swelling, erythema, or pain to palpation. Objective Data Vital Signs Vital Signs: Vital Signs - 24 hr 03/16/21 11:27 03/16/21 15:58 03/16/21 20:00 Temperature 97.4 F L 97.8 F 97.3 F L Pulse Rate 82 112 H 91 Pulse Rate [Left Radial] Respiratory Rate 16 16 16 Blood Pressure 133/71 137/87 119/68 Pulse Oximetry 100 100 100 03/16/21 20:45 03/16/21 22:00 03/16/21 23:53 Temperature 97.5 F L 97.7 F Pulse Rate 83 92 86 Pulse Rate [Left Radial] 82 Respiratory Rate 18 20 18 Blood Pressure 110/70 120/68 119/67 Pulse Oximetry 100 100 100 03/17/21 00:00 03/17/21 03:53 03/17/21 04:00 Temperature 97.9 F Pulse Rate 83 Pulse Rate [Left Radial] 82 82 Respiratory Rate 18 Blood Pressure 110/70 110/70 103/56 L Pulse Oximetry 100 03/17/21 08:00 Temperature 97.3 F L Pulse Rate 68 Pulse Rate [Left Radial] Respiratory Rate 16 Blood Pressure 103/56 L Pulse Oximetry 96 Intake/Output Intake/Output: Intake & Output 03/14/21 03/15/21 03/16/21 03/17/21 23:59 23:59 23:59 23:59 Intake Total 2150 1000 Output Total 800 500
[2021-03-17] MEDS: chlordiazePOXIDE (*CRX) 10 MG CAPSULE PO ×2 (13:12→20:35)
--- NOTE | 2021-03-17 15:37 | PC.NURSE ---
All pt care, assessments and medications done by Maryuri Guzmán RNLP with Ponce Vallejo RN precepting.
[2021-03-18 04:00] VITALS: BP 123/71; PULSE 92; RESP 18; TEMP 36.6; O2SAT 100
[2021-03-18] MEDS: chlordiazePOXIDE (*CRX) 10 MG CAPSULE PO ×2 (05:16→15:12)
[2021-03-18] MEDS: SODIUM CHLORIDE 0.9% IV 1,000 ML 125 ML IV CONT ×3 (05:16→21:24)
[2021-03-18 06:52] LABS: Hematocrit 31.1 % (42.0-52.0); Hemoglobin 10.4 g/dL (14.0-18.0)
[2021-03-18 07:03] LABS: Anion Gap 7 mmol/L (8-16); Blood Urea Nitrogen 17 mg/dL (9-20); Calcium 8.9 mg/dL (8.4-10.2); Carbon Dioxide 20 mmol/L (22-30); Chloride 113 mmol/L (98-107); Estimated CRCL calculation 49 ml/min; Estimated Glomerular Filt Rate > 60; Glucose 90 mg/dL (65-110); Sodium 140 mmol/L (137-145)
--- NOTE | 2021-03-18 09:50 | WPDNEURCNPN ---
Assessment and Plan Additional Plan Chronic alcoholism with generalized weakness obviously because of the nutritional deficiency will definitely benefit from the step program in the outpatient setting he has been in the hospital without any l seizures his EEG was definitely abnormal compatible with metabolic encephalopathy or postictal state. He is a likely candidate to have seizure because of recurrent trauma but at this stage it was not paroxysmal and he did not come with history of seizures so starting anticonvulsants at this stage is not necessary Consult date: 03/18/21 Time Seen: 09:00 HPI: Marcell Almonte is a 50 year old maleAdmitted to the hospital for the complaints of generalized weakness in addition to the ongoing history of 1. Chronic alcoholism 2. Depression 3. Migraine headaches patient reportedly has not been eating regularly and has been drinking whole day . as per the information available he has been taking amitriptyline 50 mg along with fenofibrate, folic acid, metoprolol 200 mg daily Seroquel 100 mg at night and clonazepam daily as well evaluation up until now documented initially mild leukocytosis hemoglobin now 10.4 with MCV of 96.7 INR of 1.0 low potassium 3.0 today along with magnesium 2.6 initial ammonia level less than 9 but albumin only 2.7. Patient has had the MRI of the brain which is negative so as the renal ultrasound and CT scan of the head . Review of Systems Review of Systems: All systems reviewed & are unremarkable except as noted in HPI and below PMFSH Family History Family History Father Acute myocardial infarction Other Hypertension Social History Social History Smoking status: Never smoker Second hand tobacco smoke exposure: No Alcohol intake: current Drinks per week: 20 Substance use: current Gender identity (if verbalized by the patient): Male Sexual Orientation (if Verbalized by the Patient): Straight or Heterosexual Spiritual care concerns: No Meds Home Medications and Allergies Home Medications Medication Instructions Recorded Confirmed Type amitriptyline 50 mg PO DIRECTED 05/11/20 03/15/21 History idfkaikbpn-usffkvwluqxrk-cvoq 1 tablet PO DAILY 05/11/20 03/15/21 History [Esgic] fenofibrate 160 mg PO DAILY 05/11/20 03/15/21 History folic acid 1 mg PO DAILY 05/11/20 03/15/21 History metoprolol succinate 200 mg PO DAILY 05/11/20 03/15/21 History quetiapine [Seroquel] 100 mg PO HS 05/11/20 03/15/21 History clonazepam [Klonopin] 0.5 BID 03/15/21 History Allergies Allergy/AdvReac Type Severity Reaction Status Date / Time No Known Allergies Allergy Other Uncoded 05/11/20 11:00 Vital Signs Vital Signs - 24 hr 03/17/21 12:00 03/17/21 16:00 03/17/21 20:00 Temperature 36.1 C L 36.1 C L 36.6 C Pulse Rate 96 90 84 Respiratory Rate 18 14 18 Blood Pressure 116/67 122/65 114/67 Pulse Oximetry 100 100 100 03/17/21 22:00 03/18/21 04:00 Temperature 36.6 C 36.6 C Pulse Rate 81 92 Respiratory Rate 18 18 Blood Pressure 140/75 123/71 Pulse Oximetry 100 100 Exam Narrative: Exam Narrative: examination reveals him to be awake alert in no obvious acute distress but definitely chronically ill-appearing head normocephalic with no cranial bruit. Ear nose throat examination normal. Neck is supple with no cervical bruit no thyromegaly no lymphadenopathy. Heart regular with no murmur. Lungs clear to auscultation with no rhonchi or crepitations. Abdomen is soft with no organomegaly. Neurological he is awake alert follow the instruction his speech is of low volume but not dysarthric not dysphonic and not dysphasic. Pupils round regular reacting to light equally. Santos of vision are full. Extraocular movements appeared full with no nystagmus. Facial sensation intact with face symmetrical. Tongue in the oral cavity in the midline and palate moves symmetricall
[2021-03-18] MEDS: POTASSIUM CHLORIDE 20 MEQ TABLET 40 MEQ PO (10:46)
[2021-03-18] MEDS: THIAMINE HCL 200 MG/2 ML VIAL 100 MG IV PUSH (10:47)
[2021-03-18] MEDS: PANTOPRAZOLE SODIUM IV 40 MG VIAL IV PUSH ×2 (10:47→21:13)
[2021-03-18] MEDS: FAMOTIDINE 20 MG/2 ML VIAL IV PUSH ×2 (10:47→21:13)
--- NOTE | 2021-03-18 12:47 | P.DS_ITS ---
DS: Summary Time Spent with Patient Time attestation: Total time spent providing and/or coordinating discharge ser vices: DS: Data Data Completed and Pending Labs on day of discharge: Labs from last 24 hours 03/18/21 03/18/21 06:00 06:00 Hgb 10.4 L Hct 31.1 L Sodium 140 Potassium 3.0 L Chloride 113 H Carbon Dioxide 20 L Anion Gap 7 L BUN 17 Creatinine 1.10 Estim Creat Clear Calc 49 Estimated GFR > 60 Glucose 90 Calcium 8.9 Preliminary micro results at discharge 03/16/21 11:16 Blood Culture - Preliminary Blood 03/16/21 11:13 Blood Culture - Preliminary Blood Discharge Plan Discharge Attending physician on discharge: Jovan Chapa Consulting providers: Mak Chung Discharging Clinician: Vane Shine Patient Disposition: Home, Self-Care Activity: no driving and as tolerated Diet: regular Discharge Instructions: -Please not your medications have changed. You should only take your Klonopin as needed. If you take it twice a day, talk to your doctor who prescribed it about tappering it. -It is very important for you to get help with your drinking. You explained that you do not plan on quitting drinking but I would strongly advise you to at least cut down or sign up for a detox program. You have been given information about programs that can help you. Talk to a healthcare provider before quitting alcohol cold turkey or all at once. Do not drive. -Follow up with a primary care doctor in 1-2 weeks about this stay -Worrisome signs and symptoms to come back to the ER for: chest pain, shortness of breath, passing out, confusion, hearing or seeing things, progressive significant weakness, or any other worrisome symptom Patient Instructions: Antibiotic Form, Acute Kidney Injury (GEN), Alcohol Withdrawal (GEN) Stand Alone Forms: General Discharge Information Follow-up/Referrals: [place],Aminta Mc MD [Primary Care Provider] - 1 Week Discharge Medications: New amoxicillin-pot clavulanate [Augmentin] 500-125 mg tablet 1 tablet PO Q12H 5 Days Qty: 10 RF: 0 Continued metoprolol succinate 200 mg tablet extended release 24 hr 200 mg PO DAILY RF: 0 quetiapine [Seroquel] 100 mg tablet 100 mg PO HS RF: 0 amitriptyline 50 mg tablet 50 mg PO DIRECTED RF: 0 alwskfckva-zgxlskazlykml-cnyo [Esgic] 50-325-40 mg tablet 1 tablet PO DAILY RF: 0 folic acid 1 mg tablet 1 mg PO DAILY RF: 0 fenofibrate 160 mg tablet 160 mg PO DAILY RF: 0 clonazepam [Klonopin] 0.5 mg tablet 0.5 BID RF: 0 Date of admission: 03/15/21 20:48 Primary Care Provider: [place],Aminta Mc Admitting Provider: Daly Moore V. Attending physician on admission: Vane Shine Condition: Stable Quality VTE Prophylaxis VTE prophylaxis: mechanical ordered
[2021-03-18 14:00] VITALS: BP 129/64; PULSE 85; RESP 16; TEMP 36.6; O2SAT 100
[2021-03-18] MEDS: FOLIC ACID 1 MG/0.2 ML INJ IV PUSH (15:12)
--- NOTE | 2021-03-18 15:27 | PM.IMPN ---
Progress Note: A&P Assessment and Plan (1) Acute encephalopathy: Code(s): G93.40 - Encephalopathy, unspecified Status: Acute Assessment and Plan: Resolved. Likely due to severe dehydration, possible UTI and possibly alcohol withdraw -CT brain and MRI had no acute pathology -EEG reviewed, neurology does not recommend any anticonvulsants at this time -abg with no significant abnormalities -lactic acid and ammonia normal - UTI noted on UA. blood cultures with no growth to date (2) Alcohol withdrawal syndrome: Qualifiers: Complication of substance-induced condition: uncomplicated Qualified Code(s): F10.230 - Alcohol dependence with withdrawal, uncomplicated Code(s): F10.239 - Alcohol dependence with withdrawal, unspecified Status: Acute Assessment and Plan: will schedule 25 mg of Librium every 8 hours due to his increased alcohol withdrawal - continue seizure precautions - history of alcohol withdrawal seizure (3) RENETTA (acute kidney injury): Code(s): N17.9 - Acute kidney failure, unspecified Status: Acute Assessment and Plan: Cr better today with IV fluids -likely due to dehydration -renal us okay -continue IV fluids (4) Alcohol dependence: Code(s): F10.20 - Alcohol dependence, uncomplicated Status: Acute Assessment and Plan: As above (5) Generalized weakness: Code(s): R53.1 - Weakness Status: Acute Assessment and Plan: likely due to dehydration and alcohol abuse - patient unsafe to discharge at this time. continue with PT and OT. Obtain lumbar CT (6) UTI (urinary tract infection): Code(s): N39.0 - Urinary tract infection, site not specified Status: Acute Assessment and Plan: continue ceftriaxone Additional Plan calcium now normal, was likely high on admission due to dehydration. urine catheter d/c Subjective Date/time seen: 03/18/21 15:27 Interval history: Pt is a 50 y/o male here for AMS, dehydration and weakness. patient was seen today and has no complaints. Pt denies nausea, vomiting, fevers, chills, constipation, diarrhea, chest pain, sob, or abdominal pain. he denies hallucinations or anxiety. ADRIANA Valente states that patient was very weak and shaky. Exam Narrative: Exam Narrative: General: underweight pt resting in bed in NAD HEENT: normocephalic, poor dentition Neck: supple Neuro: A&o x 4. CN 2-12 intact. Strength 5/5 in UE and LE. no tremor on exam this morning CV:RRR Resp:CTA Abd: Soft, non distended. No pain to palpation. Positive bowel sounds Extremities: No swelling, erythema, or pain to palpation. Objective Data Vital Signs Vital Signs: Vital Signs - 24 hr 03/17/21 16:00 03/17/21 20:00 03/17/21 22:00 Temperature 97.0 F L 97.8 F 97.9 F Pulse Rate 90 84 81 Respiratory Rate 14 18 18 Blood Pressure 122/65 114/67 140/75 Pulse Oximetry 100 100 100 03/18/21 04:00 03/18/21 14:00 Temperature 97.9 F 97.9 F Pulse Rate 92 85 Respiratory Rate 18 16 Blood Pressure 123/71 129/64 Pulse Oximetry 100 100 Intake/Output Intake/Output: Intake & Output 03/15/21 03/16/21 03/17/21 03/18/21 23:59 23:59 23:59 23:59 Intake Total 2150 3390 3160 Output Total 800 1000 500 Balance 1350 2390 2660 Meds/Results Medications: Active Medications Generic Name Dose Route Start Last Admin Trade Name Freq PRN Reason Stop Dose Admin Acetaminophen 650 mg 03/15/21 20:48 Acetaminophen 325 Mg Tablet PO Q4H PRN Mild Pain (1-3) or Fever Chlordiazepoxide HCl 25 mg 03/18/21 22:00 Chlordiazepoxide (*Crx) 25 Mg Capsule PO Q8HR CARLOS Famotidine 20 mg 03/15/21 22:20 03/18/21 10:47 Famotidine 20 Mg/2 Ml Vial IV PUSH 20 mg Q12HR CARLOS Administration Folic Acid 1 mg 03/17/21 09:00 03/18/21 15:12 Folic Acid 1 Mg/0.2 Ml Inj IV PUSH 1 mg QAM CARLOS Administration Sodium Chloride 1,000 mls @ 125 mls/
[2021-03-18] MEDS: chlordiazePOXIDE (*CRX) 25 MG CAPSULE PO (21:13)
[2021-03-18] MEDS: TAMSULOSIN HCL 0.4 MG CAPSULE PO (21:13)
[2021-03-18 22:00] VITALS: BP 129/64; PULSE 91; RESP 18; TEMP 36.3; O2SAT 99
[2021-03-19] VITALS: BP 129/64; PULSE 91
[2021-03-19] MEDS: chlordiazePOXIDE (*CRX) 25 MG CAPSULE PO (05:04)
[2021-03-19 06:00] VITALS: BP 138/68; PULSE 93; RESP 18; TEMP 36.6; O2SAT 98
[2021-03-19 07:14] LABS: Hematocrit 28.6 % (42.0-52.0); Hemoglobin 9.7 g/dL (14.0-18.0)
[2021-03-19 07:34] LABS: Anion Gap 6 mmol/L (8-16); Blood Urea Nitrogen 9 mg/dL (9-20); Calcium 8.5 mg/dL (8.4-10.2); Carbon Dioxide 21 mmol/L (22-30); Chloride 111 mmol/L (98-107); Estimated CRCL calculation 59 ml/min; Estimated Glomerular Filt Rate > 60; Glucose 101 mg/dL (65-110); Magnesium 1.4 mg/dL (1.6-2.3); Sodium 138 mmol/L (137-145)
[2021-03-19] MEDS: SODIUM CHLORIDE 0.9% IV 1,000 ML 125 ML IV CONT (08:21)
[2021-03-19] MEDS: METOPROLOL SUCCINATE EXT REL 100 MG TABCR 200 MG PO (08:22)
[2021-03-19] MEDS: PANTOPRAZOLE SODIUM IV 40 MG VIAL IV PUSH ×2 (08:23→21:14)
[2021-03-19] MEDS: FAMOTIDINE 20 MG/2 ML VIAL IV PUSH ×2 (08:23→21:14)
[2021-03-19] MEDS: THIAMINE HCL 200 MG/2 ML VIAL 100 MG IV PUSH (08:23)
[2021-03-19] MEDS: TAMSULOSIN HCL 0.4 MG CAPSULE PO (08:23)
[2021-03-19 10:54] VITALS: O2SAT 98
[2021-03-19] MEDS: GABAPENTIN 100 MG CAPSULE PO ×3 (12:52→18:18)
[2021-03-19] MEDS: cloNIDine HCL 0.1 MG TABLET PO ×2 (12:52→21:14)
--- NOTE | 2021-03-19 13:54 | PM.IMPN ---
Progress Note: A&P Assessment and Plan (1) Acute encephalopathy: Code(s): G93.40 - Encephalopathy, unspecified Status: Acute Assessment and Plan: Resolved. Likely due to severe dehydration, UTI and possibly alcohol withdraw -CT brain and MRI had no acute pathology -EEG reviewed -abg with no significant abnormalities -lactic acid and ammonia normal - UTI noted on UA. blood cultures with no growth to date (2) Alcohol withdrawal syndrome: Qualifiers: Complication of substance-induced condition: uncomplicated Qualified Code(s): F10.230 - Alcohol dependence with withdrawal, uncomplicated Code(s): F10.239 - Alcohol dependence with withdrawal, unspecified Status: Acute Assessment and Plan: will increase to 50 mg of Librium every 8 hours due to his increased alcohol withdrawal. Due to his significant alcohol hx, will do gabapentin, Tegretol, and clonidine during withdraw since he is high risk since he has had a seizure before - continue seizure precautions (3) RENETTA (acute kidney injury): Code(s): N17.9 - Acute kidney failure, unspecified Status: Acute Assessment and Plan: Resolved with fluids -likely due to dehydration -renal us okay (4) Alcohol dependence: Code(s): F10.20 - Alcohol dependence, uncomplicated Status: Acute Assessment and Plan: As above (5) Generalized weakness: Code(s): R53.1 - Weakness Status: Acute Assessment and Plan: likely due to dehydration and alcohol abuse - patient unsafe to discharge at this time. continue with PT and OT. Obtain lumbar MRI (6) UTI (urinary tract infection): Code(s): N39.0 - Urinary tract infection, site not specified Status: Acute Assessment and Plan: continue ceftriaxone (7) Urinary retention: Code(s): R33.9 - Retention of urine, unspecified Status: Acute Assessment and Plan: Likely due to alcohol abuse/neurogenic bladder - cauda equina seems less likely, but will check lumbar MRI -I spoke with Sidra WRIGHT who states he has had to be straight cathed many times. If he retains again today, I am going to replace the wright Additional Plan calcium now normal, was likely high on admission due to dehydration. Subjective Date/time seen: 03/19/21 13:54 Interval history: Pt is a 50 y/o male here for AMS, dehydration and weakness. patient was seen today and has complaints of weakness. I spoke with therapy who states pt is very shaky when up and not stable on his feet. Pt states he is like this every day until he starts drinking and then the shakes go away. RN also tells me pt has not been urinating very well and has been needing to be straight cathed. Last cath he got 750 out. Pt denies nausea, vomiting, fevers, chills, constipation, diarrhea, chest pain, sob, or abdominal pain. he denies hallucinations or anxiety. Exam Narrative: Exam Narrative: General: underweight pt resting in bed in NAD HEENT: normocephalic, poor dentition Neck: supple Neuro: A&o x 4. CN 2-12 intact. Strength 5/5 in UE and LE. Tremor noted on exam CV:RRR Resp:crackles at the bases Abd: Soft, non distended. No pain to palpation. Positive bowel sounds Extremities: No swelling, erythema, or pain to palpation. Objective Data Vital Signs Vital Signs: Vital Signs - 24 hr 03/18/21 14:00 03/18/21 22:00 03/19/21 00:00 Temperature 97.9 F 97.3 F L Pulse Rate 85 91 Pulse Rate [Left Radial] 91 Respiratory Rate 16 18 Blood Pressure 129/64 129/64 129/64 Pulse Oximetry 100 99 03/19/21 06:00 03/19/21 10:54 Temperature 97.8 F Pulse Rate 93 Pulse Rate [Left Radial] Respiratory Rate 18 Blood Pressure 138/68 Pulse Oximetry 98 98 Intake/Output Intake/Output: Intake & Output 03/16/21 03/17/21 03/18/21 03/19/21 23:59 23:59 23:59 23:59 Intake Total 2150 3390 4920 1240 Output Total 800 1000 1950 0
[2021-03-19 14:00] VITALS: BP 125/72; PULSE 83; RESP 18; TEMP 36.7; O2SAT 98
[2021-03-19] MEDS: chlordiazePOXIDE (*CRX) 25 MG CAPSULE 50 MG PO ×2 (16:44→21:14)
[2021-03-19] MEDS: POTASSIUM CHLORIDE 20 MEQ TABLET 40 MEQ PO (16:45)
[2021-03-19] MEDS: MAGNESIUM SULF 2 GM/WATER 50ML 2 GM/50 ML BAG IVPB (16:45)
[2021-03-19] MEDS: FOLIC ACID 1 MG/0.2 ML INJ IV PUSH (18:18)
[2021-03-19 20:00] VITALS: BP 109/65; PULSE 74; PULSE 88; RESP 20; TEMP 36.2; O2SAT 98
[2021-03-20] MEDS: chlordiazePOXIDE (*CRX) 25 MG CAPSULE 50 MG PO (05:45)
[2021-03-20 06:00] VITALS: BP 109/61; PULSE 77; RESP 18; TEMP 36.1; O2SAT 98
[2021-03-20 06:58] LABS: Hematocrit 27.4 % (42.0-52.0); Hemoglobin 9.3 g/dL (14.0-18.0)
[2021-03-20 07:12] LABS: Anion Gap 7 mmol/L (8-16); Blood Urea Nitrogen 8 mg/dL (9-20); Calcium 8.6 mg/dL (8.4-10.2); Carbon Dioxide 21 mmol/L (22-30); Chloride 107 mmol/L (98-107); Estimated CRCL calculation 59 ml/min; Estimated Glomerular Filt Rate > 60; Glucose 87 mg/dL (65-110); Magnesium 1.8 mg/dL (1.6-2.3); Potassium 3.4 mmol/L (3.4-5.0); Sodium 135 mmol/L (137-145)
[2021-03-20 08:49] VITALS: PULSE 77
[2021-03-20] MEDS: FAMOTIDINE 20 MG/2 ML VIAL IV PUSH ×2 (08:49→22:00)
[2021-03-20] MEDS: FOLIC ACID 1 MG/0.2 ML INJ IV PUSH (08:49)
[2021-03-20] MEDS: cloNIDine HCL 0.1 MG TABLET PO ×2 (08:49→22:04)
[2021-03-20] MEDS: GABAPENTIN 100 MG CAPSULE PO ×3 (08:49→16:35)
[2021-03-20] MEDS: METOPROLOL SUCCINATE EXT REL 100 MG TABCR 200 MG PO (08:49)
[2021-03-20] MEDS: THIAMINE HCL 200 MG/2 ML VIAL 100 MG IV PUSH (08:49)
[2021-03-20] MEDS: TAMSULOSIN HCL 0.4 MG CAPSULE PO (08:51)
[2021-03-20] MEDS: PANTOPRAZOLE SODIUM IV 40 MG VIAL IV PUSH ×2 (08:51→22:00)
[2021-03-20] MEDS: POTASSIUM CHLORIDE 20 MEQ TABLET PO (10:00)
[2021-03-20] MEDS: MAGNESIUM OXIDE 400 MG TABLET PO (10:00)
--- NOTE | 2021-03-20 10:31 | PCOTNOTE ---
Attempted to see patient at this time for skilled OT session. Patient refused treatment at this time d/t eating breakfast and feeling fatigued. Will attempt to see patient for a second time this date. Will continue OT per POC.
--- NOTE | 2021-03-20 12:50 | PM.IMPN ---
Progress Note: A&P Assessment and Plan (1) Alcohol withdrawal syndrome: Qualifiers: Complication of substance-induced condition: uncomplicated Qualified Code(s): F10.230 - Alcohol dependence with withdrawal, uncomplicated Code(s): F10.239 - Alcohol dependence with withdrawal, unspecified Status: Acute Assessment and Plan: Pt needs hospitalization due to severity of his alcohol withdrawal and hx of seizure -Continue librium but decrease down to 25 every 8 hours. Due to his significant alcohol hx, he was started on gabapentin, tegretol, and clonidine during withdraw since he is high risk since he has had a seizure before - continue seizure precautions (2) Acute encephalopathy: Code(s): G93.40 - Encephalopathy, unspecified Status: Acute Assessment and Plan: Resolved. Likely due to severe dehydration, UTI and possibly alcohol withdraw -CT brain and MRI had no acute pathology -EEG reviewed -abg with no significant abnormalities -lactic acid and ammonia normal - UTI noted on UA. blood cultures with no growth to date (3) RENETTA (acute kidney injury): Code(s): N17.9 - Acute kidney failure, unspecified Status: Acute Assessment and Plan: Resolved with fluids -likely due to dehydration -renal us okay (4) Alcohol dependence: Code(s): F10.20 - Alcohol dependence, uncomplicated Status: Acute Assessment and Plan: As above (5) Generalized weakness: Code(s): R53.1 - Weakness Status: Acute Assessment and Plan: likely due to dehydration and alcohol abuse - patient unsafe to discharge at this time. continue with PT and OT. (6) UTI (urinary tract infection): Code(s): N39.0 - Urinary tract infection, site not specified Status: Acute Assessment and Plan: continue ceftriaxone (7) Urinary retention: Code(s): R33.9 - Retention of urine, unspecified Status: Acute Assessment and Plan: Likely due to alcohol abuse/neurogenic bladder - cauda equina seems less likely, lumbar MRI without cord compression -start flomax, but likely due to neurogenic bladder Subjective Date/time seen: 03/20/21 12:50 Interval history: Pt is a 50 y/o male here for AMS, dehydration and weakness. patient was seen today and states he is doing okay. He feels weak but says his tremors have improved and he feels stronger than yesterday. Pt denies nausea, vomiting, fevers, chills, constipation, diarrhea, chest pain, sob, or abdominal pain. he denies hallucinations or anxiety. Exam Narrative: Exam Narrative: General: underweight pt resting in bed in NAD HEENT: normocephalic, poor dentition Neck: supple Neuro: A&o x 4. CN 2-12 intact. Strength 5/5 in UE and LE. No Tremor noted on exam CV:RRR Resp:CTA today Abd: Soft, non distended. No pain to palpation. Positive bowel sounds Extremities: No swelling, erythema, or pain to palpation. Objective Data Vital Signs Vital Signs: Vital Signs - 24 hr 03/19/21 14:00 03/19/21 20:00 03/20/21 06:00 Temperature 98.0 F 97.1 F L 97.0 F L Pulse Rate 83 74 77 Pulse Rate [Left Radial] 88 Respiratory Rate 18 20 18 Blood Pressure 125/72 109/65 109/61 Pulse Oximetry 98 98 98 03/20/21 08:49 Temperature Pulse Rate 77 Pulse Rate [Left Radial] Respiratory Rate Blood Pressure Pulse Oximetry Intake/Output Intake/Output: Intake & Output 03/17/21 03/18/21 03/19/21 03/20/21 23:59 23:59 23:59 23:59 Intake Total 3390 4920 1780 120 Output Total 1000 1950 1000 800 Balance 2390 2970 780 -680 Meds/Results Medications: Active Medications Generic Name Dose Route Start Last Admin Trade Name Freq PRN Reason Stop Dose Admin Acetaminophen 650 mg 03/15/21 20:48 Acetaminophen 325 Mg Tablet PO Q4H PRN Mild Pain (1-3) or Fever Carbamazepine 100 mg 03/19/21 11:00 03/20/21 08:48 Carbamazepine Chew 100 Mg
[2021-03-20 14:00] VITALS: BP 109/55; PULSE 75; RESP 18; TEMP 36.6; O2SAT 99
[2021-03-20 20:35] VITALS: BP 109/49; PULSE 77; PULSE 88; RESP 20; O2SAT 99
[2021-03-20 22:00] VITALS: BP 109/49; PULSE 77; RESP 20; TEMP 36.2; O2SAT 99
[2021-03-20] MEDS: chlordiazePOXIDE (*CRX) 25 MG CAPSULE PO (22:00)
[2021-03-21] VITALS (9 sets, daily range): BP systolic 101–121; BP diastolic 53–74; PULSE 62–90; RESP 16–22; TEMP 35.8–36.7; O2SAT 95–100
[2021-03-21] MEDS: chlordiazePOXIDE (*CRX) 25 MG CAPSULE PO ×3 (06:04→20:41)
[2021-03-21 06:51] LABS: Hematocrit 29.6 % (42.0-52.0); Hemoglobin 9.9 g/dL (14.0-18.0); Mean Corpuscular HGB Conc 33.4 g/dl (32-36); Mean Corpuscular Hemoglobin 31.5 pg (26-34); Mean Corpuscular Volume 94.3 fl (80-100); Mean Platelet Volume 11.5 fl (7.4-10.4); Platelet Count Result 163 k/mm3 (150-375); Red Blood Count 3.14 M/mm3 (4.6-6.20); Red Cell Distribution Width 13.6 % (11.5-14.5); White Blood Count 7.2 K/mm3 (4.5-10.0)
[2021-03-21 07:31] LABS: Anion Gap 5 mmol/L (8-16); Blood Urea Nitrogen 8 mg/dL (9-20); Calcium 8.4 mg/dL (8.4-10.2); Carbon Dioxide 22 mmol/L (22-30); Chloride 107 mmol/L (98-107); Estimated CRCL calculation 59 ml/min; Estimated Glomerular Filt Rate > 60; Glucose 85 mg/dL (65-110); Magnesium 1.7 mg/dL (1.6-2.3); Potassium 3.8 mmol/L (3.4-5.0); Sodium 134 mmol/L (137-145)
[2021-03-21] MEDS: THIAMINE HCL 200 MG/2 ML VIAL 100 MG IV PUSH (08:35)
[2021-03-21] MEDS: TAMSULOSIN HCL 0.4 MG CAPSULE PO (08:35)
[2021-03-21] MEDS: FAMOTIDINE 20 MG/2 ML VIAL IV PUSH ×2 (08:35→20:36)
[2021-03-21] MEDS: PANTOPRAZOLE SODIUM IV 40 MG VIAL IV PUSH ×2 (08:36→20:36)
[2021-03-21] MEDS: FOLIC ACID 1 MG/0.2 ML INJ IV PUSH (08:37)
--- NOTE | 2021-03-21 10:16 | WPDNEUROPN ---
Progress Note: A&P Additional Plan will benefit from the therapy Review of Systems Review of Systems: All systems reviewed & are unremarkable except as noted in HPI and below Exam Narrative: Exam Narrative: continues to be awake alert but extremely weak ear nose throat examination normal neck is heart regular lungs clear neurological he is awake alert having extreme difficulties in sitting and standing with significant weakness reflexes sluggish Objective Data Vital Signs Vital Signs: Vital Signs - 24 hr 03/20/21 14:00 03/20/21 20:35 03/20/21 22:00 Temperature 36.6 C 36.2 C L Pulse Rate 75 77 77 Pulse Rate [Left Radial] 88 Respiratory Rate 18 20 20 Blood Pressure 109/55 L 109/49 L 109/49 L Pulse Oximetry 99 99 99 03/21/21 00:00 03/21/21 04:00 03/21/21 06:00 Temperature 35.8 C L Pulse Rate 73 Pulse Rate [Left Radial] 88 88 Respiratory Rate 22 H Blood Pressure 101/60 101/60 101/60 Pulse Oximetry 95 03/21/21 08:00 Temperature 36.6 C Pulse Rate 83 Pulse Rate [Left Radial] Respiratory Rate 16 Blood Pressure 120/74 Pulse Oximetry 100 Intake/Output Intake/Output: Intake & Output 03/18/21 03/19/21 03/20/21 03/21/21 23:59 23:59 23:59 23:59 Intake Total 4920 1830 500 450 Output Total 1950 1000 1350 650 Balance 2970 830 -850 -200 Meds/Results Medications: Active Medications Generic Name Dose Route Start Last Admin Trade Name Freq PRN Reason Stop Dose Admin Acetaminophen 650 mg 03/15/21 20:48 Acetaminophen 325 Mg Tablet PO Q4H PRN Mild Pain (1-3) or Fever Carbamazepine 50 mg 03/21/21 09:00 Carbamazepine Chew 50 Mg Chew PO Q12HR CARLOS Chlordiazepoxide HCl 25 mg 03/20/21 14:00 03/21/21 06:04 Chlordiazepoxide (*Crx) 25 Mg Capsule PO 25 mg Q8HR CARLOS Administration Clonidine HCl 0.1 mg 03/21/21 09:00 Clonidine Hcl 0.1 Mg Tablet PO DAILY CARLOS Famotidine 20 mg 03/15/21 22:20 03/21/21 08:35 Famotidine 20 Mg/2 Ml Vial IV PUSH 20 mg Q12HR CARLOS Administration Folic Acid 1 mg 03/17/21 09:00 03/21/21 08:37 Folic Acid 1 Mg/0.2 Ml Inj IV PUSH 1 mg QAM CARLOS Administration Gabapentin 100 mg 03/21/21 09:00 Gabapentin 100 Mg Capsule PO BID [facility] Ceftriaxone Sodium/Dextrose 1 gm in 50 mls @ 100 mls/hr 03/16/21 14:00 03/20/21 13:05 Rocephin 1 Gm/D5w 50 Ml IVPB 100 mls/hr Q24H CARLOS Administration Lorazepam 1 mg 03/15/21 20:48 Lorazepam Inj (*Crx) 2 Mg/Ml Vial IV PUSH Q6H PRN Seizures Magnesium Oxide 400 mg 03/20/21 09:05 03/20/21 10:00 Magnesium Oxide 400 Mg Tablet PO 400 mg DAILY CARLOS Administration Metoprolol Succinate 200 mg 03/19/21 09:00 03/20/21 08:49 Metoprolol Succinate Ext Rel 100 Mg Tabcr PO 200 mg DAILY CARLOS Administration Ondansetron HCl 4 mg 03/15/21 20:48 Ondansetron Inj 4 Mg/2 Ml Vial IV PUSH Q4H PRN Nausea Pantoprazole Sodium 40 mg 03/16/21 11:25 03/21/21 08:36 Pantoprazole Sodium Iv 40 Mg Vial IV PUSH 40 mg Q12HR CARLOS Administration Tamsulosin HCl 0.4 mg 03/19/21 09:00 03/21/21 08:35 Tamsulosin Hcl 0.4 Mg Capsule PO 0.4 mg QAM CARLOS Administration Thiamine HCl 100 mg 03/16/21 10:55 03/21/21 08:35 Thiamine Hcl 200 Mg/2 Ml Vial IV PUSH 100 mg QAM CARLOS Administration Radiology Results: ITS Impressions Head CT 03/15/21 23:58 IMPRESSION: 1. No acute intracranial findings. Renal Ultrasound 03/16/21 09:41 Impression: 1: Unremarkable renal ultrasound. No stones, masses or hydronephrosis. Brain MRI 03/16/21 13:15 IMPRESSION: 1. No acute intracranial process. Lumbar Spine CT 03/18/21 16:26 IMPRESSION: 1. L5-S1 grade 1 retrolisthesis, moderate left neural foraminal stenosis. 2. Otherwise mild lumbar spondylosis. No acute lumbar findings. 3. Nonspecific lower retroperitoneal fat stranding. No hydronephrosis. Lumbar Spine MRI 03/19/21 14:51 IMPRESSION: 1. Sev
[2021-03-21] MEDS: METOPROLOL SUCCINATE EXT REL 100 MG TABCR 200 MG PO (11:34)
[2021-03-21] MEDS: MAGNESIUM OXIDE 400 MG TABLET PO (11:34)
--- NOTE | 2021-03-21 11:38 | PM.IMPN ---
Progress Note: A&P Assessment and Plan (1) Wernicke's disease: Code(s): E51.2 - Wernicke's encephalopathy Status: Acute Assessment and Plan: patient has failed to improve with alcohol withdrawal medications and therapy here at the hospital. suspect wernickes - he has no tremors or issues while resting in bed and is able to eat and drink fine but is unable to coordinate his muscles to get up out of bed or stand. he even sometimes has trouble keeping his head up - spoke with neurology about the case, I do suspect Wernicke syndrome at this time - he has been receiving folic acid and thiamine. - check B12 and folate - MRI of the brain and lumbar spine without acute pathology - will need SNF and I spoke with the daughter about this (2) Alcohol withdrawal syndrome: Qualifiers: Complication of substance-induced condition: uncomplicated Qualified Code(s): F10.230 - Alcohol dependence with withdrawal, uncomplicated Code(s): F10.239 - Alcohol dependence with withdrawal, unspecified Status: Acute Assessment and Plan: Pt needs hospitalization due to severity of his alcohol withdrawal and hx of seizure -Due to his significant alcohol hx, he was started on gabapentin, tegretol, and clonidine during withdraw since he is high risk since he has had a seizure before -Will start decreasing doses and frequency of alcohol withdraw medications - continue seizure precautions (3) Acute encephalopathy: Code(s): G93.40 - Encephalopathy, unspecified Status: Acute Assessment and Plan: Resolved. Likely due to severe dehydration, UTI and possibly alcohol withdraw and wernickes -CT brain and MRI had no acute pathology -EEG reviewed -abg with no significant abnormalities -lactic acid and ammonia normal - UTI noted on UA. blood cultures with no growth to date (4) RENETTA (acute kidney injury): Code(s): N17.9 - Acute kidney failure, unspecified Status: Acute Assessment and Plan: Resolved with fluids -likely due to dehydration -renal us okay (5) Alcohol dependence: Code(s): F10.20 - Alcohol dependence, uncomplicated Status: Acute Assessment and Plan: As above (6) Generalized weakness: Code(s): R53.1 - Weakness Status: Acute Assessment and Plan: likely due to dehydration and alcohol abuse - patient unsafe to discharge at this time. Will need SNF -Continue PT and OT (7) UTI (urinary tract infection): Code(s): N39.0 - Urinary tract infection, site not specified Status: Acute Assessment and Plan: continue ceftriaxone (8) Urinary retention: Code(s): R33.9 - Retention of urine, unspecified Status: Acute Assessment and Plan: Likely due to alcohol abuse/neurogenic bladder - cauda equina seems less likely, lumbar MRI without cord compression -Continue flomax, but likely due to neurogenic bladder -follow up with urology outpt Subjective Date/time seen: 03/21/21 11:38 Interval history: Pt is a 50 y/o male here for AMS, dehydration and weakness. patient was seen today and states he is doing okay. He feels weak and tired and he cannot get out of bed. Pt denies nausea, vomiting, fevers, chills, constipation, diarrhea, chest pain, sob, or abdominal pain. he denies hallucinations or anxiety. Pt states he is not able to walk and at home says some days he can walk and some days he couldn't and had to crawl. The shaking got better once he started drinking. Exam Narrative: Exam Narrative: General: underweight pt resting in bed in NAD HEENT: normocephalic, poor dentition Neck: supple Neuro: A&o x 4. CN 2-12 intact. Strength 5/5 in UE and LE. No Tremor noted on exam. Unable to tract my finger with his eyes. was discordant with [id number]. able to do heel to shins CV:RRR Resp:CTA today Abd: Soft, non distended. No pain to palpation. Positive bowel
[2021-03-21] MEDS: carBAMazepine CHEW 50 MG CHEW PO ×2 (12:21→20:35)
[2021-03-21] MEDS: GABAPENTIN 100 MG CAPSULE PO ×2 (12:21→18:14)
[2021-03-21] MEDS: cloNIDine HCL 0.1 MG TABLET PO (12:21)
[2021-03-21 13:13] LABS: Folic Acid 16.2 ng/mL (2.76->20)
--- NOTE | 2021-03-21 13:17 | PCNFU ---
Nutrition Follow-Up Complete: Excessive Alcohol intake as related to Alcohol withdraw as evidenced by intake of greater than 2 drinks per day. Goal: Meet estimated caloric needs Patient is progressing towards goal. We will continue current goal. Pt current nutrition is Regular with ensure compact BID. Last recorded weight is 47.5 kg, no new weight to report. Bowel Motility:+BM reported 03/19 Labs Reviewed:BUN 8, Na 134,Hct 29.6, Hgb 9.9 Meds Noted:Thiamine, Folic Acid, Pepcid,Rocephin,Mag ox, MVI, Protonix Additional Notes: Patient seen today for nutrition follow up. Diet order has advanced to a regular diet with ensure compact BID. Oral Intake: 25-50% of meals. Patient was working on lunch tray when entering the room today. He states to eating ok. Plans for SNF upon discharge. Monitoring: every 5 days.
[2021-03-22] VITALS (9 sets, daily range): BP systolic 112–141; BP diastolic 64–79; PULSE 83–90; RESP 14–22; TEMP 35.9–36.8; O2SAT 95–100
[2021-03-22 06:39] LABS: Hematocrit 30.1 % (42.0-52.0); Hemoglobin 10.3 g/dL (14.0-18.0); Mean Corpuscular HGB Conc 34.2 g/dl (32-36); Mean Corpuscular Hemoglobin 31.6 pg (26-34); Mean Corpuscular Volume 92.3 fl (80-100); Mean Platelet Volume 11.1 fl (7.4-10.4); Platelet Count Result 239 k/mm3 (150-375); Red Blood Count 3.26 M/mm3 (4.6-6.20); Red Cell Distribution Width 13.5 % (11.5-14.5); White Blood Count 7.5 K/mm3 (4.5-10.0)
[2021-03-22] MEDS: chlordiazePOXIDE (*CRX) 25 MG CAPSULE PO ×2 (06:46→18:21)
[2021-03-22 07:23] LABS: Iron 42 ug/dL (49-181)
[2021-03-22 07:25] LABS: Anion Gap 7 mmol/L (8-16); Blood Urea Nitrogen 9 mg/dL (9-20); Calcium 8.6 mg/dL (8.4-10.2); Carbon Dioxide 26 mmol/L (22-30); Chloride 103 mmol/L (98-107); Estimated CRCL calculation 59 ml/min; Estimated Glomerular Filt Rate > 60; Glucose 88 mg/dL (65-110); Potassium 3.3 mmol/L (3.4-5.0); Sodium 136 mmol/L (137-145)
[2021-03-22 07:32] LABS: Transferrin 139 mg/dL (206-381)
[2021-03-22 07:33] LABS: Percent Iron Saturation 20 % (20-50)
[2021-03-22] MEDS: MAGNESIUM OXIDE 400 MG TABLET PO (11:03)
[2021-03-22] MEDS: TAMSULOSIN HCL 0.4 MG CAPSULE PO (11:03)
[2021-03-22] MEDS: FOLIC ACID 1 MG/0.2 ML INJ IV PUSH (11:03)
[2021-03-22] MEDS: MULTIVITAMINS THERAPEUTIC TAB (*BKC) 1 TABLET PO (11:03)
[2021-03-22] MEDS: cloNIDine HCL 0.1 MG TABLET PO (11:04)
[2021-03-22] MEDS: POTASSIUM CHLORIDE 20 MEQ TABLET 40 MEQ PO (11:04)
[2021-03-22] MEDS: THIAMINE HCL 200 MG/2 ML VIAL 100 MG IV PUSH (11:05)
[2021-03-22] MEDS: FAMOTIDINE 20 MG/2 ML VIAL IV PUSH ×2 (11:06→21:33)
[2021-03-22] MEDS: PANTOPRAZOLE SODIUM IV 40 MG VIAL IV PUSH ×2 (11:07→21:35)
[2021-03-22] MEDS: METOPROLOL SUCCINATE EXT REL 100 MG TABCR 200 MG PO (13:01)
--- NOTE | 2021-03-22 13:57 | PM.IMPN ---
Progress Note: A&P Assessment and Plan (1) Wernicke's disease: Code(s): E51.2 - Wernicke's encephalopathy Status: Acute Assessment and Plan: patient has failed to improve with alcohol withdrawal medications and therapy here at the hospital. suspect possible wernickes - he has no tremors or issues while resting in bed and is able to eat and drink fine but is unable to coordinate his muscles to get up out of bed or stand. He also has a tremor with eating but is able to do so. he even sometimes has trouble keeping his head up - spoke with neurology about the case, I do suspect Wernicke syndrome at this time - he has been receiving folic acid and thiamine. - MRI of the brain, cervical spine and lumbar spine without acute pathology - will need SNF and I spoke with the sister* about this -will try primidone for possible essential tremor but seems less likely (2) Alcohol withdrawal syndrome: Qualifiers: Complication of substance-induced condition: uncomplicated Qualified Code(s): F10.230 - Alcohol dependence with withdrawal, uncomplicated Code(s): F10.239 - Alcohol dependence with withdrawal, unspecified Status: Acute Assessment and Plan: Pt needs hospitalization due to severity of his alcohol withdrawal and hx of seizure -Due to his significant alcohol hx, he was started on gabapentin, tegretol, and clonidine during withdraw since he is high risk since he has had a seizure before -These mediations have been weaned off and I will continue weaning librium as well. - continue seizure precautions (3) Acute encephalopathy: Code(s): G93.40 - Encephalopathy, unspecified Status: Acute Assessment and Plan: Resolved. Likely due to severe dehydration, UTI and possibly alcohol withdraw and wernickes -CT brain and MRI had no acute pathology -EEG reviewed -abg with no significant abnormalities -lactic acid and ammonia normal - UTI noted on UA. blood cultures with no growth to date (4) RENETTA (acute kidney injury): Code(s): N17.9 - Acute kidney failure, unspecified Status: Acute Assessment and Plan: Resolved with fluids -likely due to dehydration -renal us okay (5) Alcohol dependence: Code(s): F10.20 - Alcohol dependence, uncomplicated Status: Acute Assessment and Plan: As above (6) Generalized weakness: Code(s): R53.1 - Weakness Status: Acute Assessment and Plan: likely due to dehydration and alcohol abuse - patient unsafe to discharge at this time. Will need SNF -Continue PT and OT (7) UTI (urinary tract infection): Code(s): N39.0 - Urinary tract infection, site not specified Status: Acute Assessment and Plan: ceftriaxone finished after todays dose. (8) Urinary retention: Code(s): R33.9 - Retention of urine, unspecified Status: Acute Assessment and Plan: Likely due to alcohol abuse/neurogenic bladder - cauda equina seems less likely, lumbar MRI without cord compression -Continue flomax, but likely due to neurogenic bladder -follow up with urology outpt Subjective Date/time seen: 03/22/21 13:57 Interval history: Pt is a 50 y/o male here for AMS, dehydration and weakness. patient was seen today and states he is doing okay. He feels weak and tired and he cannot get out of bed. Pt denies nausea, vomiting, fevers, chills, constipation, diarrhea, chest pain, sob, or abdominal pain. he denies hallucinations or anxiety. I had a discussion today again that he is unsafe to go home as he could not get out of bed again today with therapy. Exam Narrative: Exam Narrative: General: underweight pt resting in bed in NAD HEENT: normocephalic, poor dentition Neck: supple Neuro: A&o x 4. CN 2-12 intact. Strength 5/5 in UE and LE. No Tremor noted on exam. He was discordant with [id number]. able to do heel to shins CV:RRR Resp:CTA today
--- NOTE | 2021-03-22 19:50 | PC.NURSE ---
This RN received call from orienting RN that pt penis was swollen approximately 1730. This RN went to pt room. Informed pt I was going to assess his penis. Penis glans showing with ring of swollen tissue just below it. Unable to retract foreskin over tissue to recover glans. Pt said he was in no pain. Called MD to inform/inquire. MD instructed to hold pressure to penis for five minutes to allow retraction. Unable to retract. Consulted Tyrel. [place] asked if it was urgent; orienting RN gave information to Tyrel who decided to make pt NPO at midnight and evaluate him in the morning since pt denies pain. Informed night RN of situation and to notify urology if pt has complaints of pain.
[2021-03-22] MEDS: PRIMIDONE 12.5 MG TABLET PO (21:35)
[2021-03-23] VITALS: BP 125/67; BP 141/79; PULSE 87; PULSE 88; RESP 16; TEMP 36.2; O2SAT 100
[2021-03-23 04:00] VITALS: BP 125/67; PULSE 82; RESP 16; TEMP 36.2; O2SAT 100
[2021-03-23] MEDS: chlordiazePOXIDE (*CRX) 25 MG CAPSULE PO (06:46)
[2021-03-23 06:54] LABS: Alanine Aminotransferase 52 U/L (4-50); Albumin Level 2.7 g/dL (3.5-5.1); Alkaline Phosphatase 157 U/L (38-126); Anion Gap 9 mmol/L (8-16); Aspartate Amino Transferase 41 U/L (17-59); Bilirubin,Total 0.5 mg/dL (0.2-1.3); Blood Urea Nitrogen 7 mg/dL (9-20); Calcium 8.7 mg/dL (8.4-10.2); Carbon Dioxide 21 mmol/L (22-30); Chloride 102 mmol/L (98-107); Estimated CRCL calculation 65 ml/min; Estimated Glomerular Filt Rate > 60; Glucose 76 mg/dL (65-110); Magnesium 1.6 mg/dL (1.6-2.3); Potassium 3.9 mmol/L (3.4-5.0); Sodium 132 mmol/L (137-145)
--- NOTE | 2021-03-23 07:27 | WPDURCON ---
Assessment and Plan Assessment and plan (1) Paraphimosis: Code(s): N47.2 - Paraphimosis Status: Acute Assessment and Plan: resolved at that time. (2) Urinary retention: Code(s): R33.9 - Retention of urine, unspecified Status: Acute Assessment and Plan: outpatient follow-up once current issues have resolved Urology Consult Note HPI Date Seen: 03/23/21 Requesting Physician: Vane Shine PA-C Primary Care Provider: Aminta Coleman, Consult Narrative Narrative: Marcell Almonte is a 51 year old male - was called urgently to assess paraphimosis. upon my arrival the nurse stated that she had reduced the paraphimosis PMFSH Family History Family History Father Acute myocardial infarction Other Hypertension Social History Social History Smoking status: Never smoker Second hand tobacco smoke exposure: No Alcohol intake: current Drinks per week: 20 Substance use: current Gender identity (if verbalized by the patient): Male Sexual Orientation (if Verbalized by the Patient): Straight or Heterosexual Spiritual care concerns: No Meds Home Medications and Allergies Home Medications Medication Instructions Recorded Confirmed Type amitriptyline 50 mg PO DIRECTED 05/11/20 03/15/21 History [id number]-[id number]-[id number] 1 tablet PO DAILY 05/11/20 03/15/21 History [Esgic] fenofibrate 160 mg PO DAILY 05/11/20 03/15/21 History folic acid 1 mg PO DAILY 05/11/20 03/15/21 History metoprolol succinate 200 mg PO DAILY 05/11/20 03/15/21 History quetiapine [Seroquel] 100 mg PO HS 05/11/20 03/15/21 History clonazepam [Klonopin] 0.5 BID 03/15/21 History Allergies Allergy/AdvReac Type Severity Reaction Status Date / Time No Known Allergies Allergy Other Uncoded 05/11/20 11:00 Vital Signs Vital Signs - 24 hr 03/22/21 08:00 03/22/21 08:15 03/22/21 12:00 Temperature 36.8 C 35.9 C L Pulse Rate 84 84 Pulse Rate [Left Radial] 88 88 Respiratory Rate 18 16 Blood Pressure 119/73 112/74 Pulse Oximetry 98 98 03/22/21 13:01 03/22/21 16:00 03/22/21 20:00 Temperature 36.2 C L 36.2 C L Pulse Rate 84 85 83 Pulse Rate [Left Radial] Respiratory Rate 22 H 14 Blood Pressure 114/70 115/64 Pulse Oximetry 97 99 03/22/21 20:40 03/23/21 00:00 03/23/21 04:00 Temperature 36.2 C L 36.2 C L Pulse Rate 87 87 82 Pulse Rate [Left Radial] 88 88 Respiratory Rate 16 16 16 Blood Pressure 141/79 H 125/67 125/67 Pulse Oximetry 100 100 100 Exam Narrative: Exam Narrative: No acute distress paraphimosis is now reduced. normal uncircumcised phallus. Bianchi catheter in place with clear urine Results Labs CBC & Chem 7: 03/22/21 06:08 03/23/21 05:53 Labs: BMP 03/23/21 05:53 Sodium 132 L Potassium 3.9 Chloride 102 Carbon Dioxide 21 L BUN 7 L Creatinine 0.80 Glucose 76 Calcium 8.7 Liver Function 03/23/21 Range/Units 05:53 Total Bilirubin 0.5 (0.2-1.3) mg/dL Direct Bilirubin 0.0 (0-0.3) mg/dL AST 41 (17-59) U/L ALT 52 H (4-50) U/L Alkaline Phosphatase 157 H (38-126) U/L Albumin 2.7 L (3.5-5.1) g/dL Quality VTE Prophylaxis VTE prophylaxis: mechanical ordered
[2021-03-23 08:08] VITALS: PULSE 68
[2021-03-23] MEDS: MAGNESIUM OXIDE 400 MG TABLET PO (08:08)
[2021-03-23] MEDS: METOPROLOL SUCCINATE EXT REL 100 MG TABCR 200 MG PO (08:08)
[2021-03-23] MEDS: PANTOPRAZOLE SODIUM IV 40 MG VIAL IV PUSH ×2 (08:09→21:11)
[2021-03-23] MEDS: TAMSULOSIN HCL 0.4 MG CAPSULE PO (08:09)
[2021-03-23] MEDS: THIAMINE HCL 200 MG/2 ML VIAL 100 MG IV PUSH (08:09)
[2021-03-23] MEDS: MULTIVITAMINS THERAPEUTIC TAB (*BKC) 1 TABLET PO (08:09)
[2021-03-23] MEDS: FAMOTIDINE 20 MG/2 ML VIAL IV PUSH (08:09)
[2021-03-23] MEDS: cloNIDine HCL 0.1 MG TABLET PO (08:20)
[2021-03-23 09:16] VITALS: PULSE 81; RESP 18; O2SAT 99
--- NOTE | 2021-03-23 11:47 | P.DS_ITS ---
DS: Summary Time Spent with Patient Time attestation: Total time spent providing and/or coordinating discharge ser vices: DS: Data Data Completed and Pending Labs on day of discharge: Labs from last 24 hours 03/23/21 05:53 Sodium 132 L Potassium 3.9 Chloride 102 Carbon Dioxide 21 L Anion Gap 9 BUN 7 L Creatinine 0.80 Estim Creat Clear Calc 65 Estimated GFR > 60 Glucose 76 Calcium 8.7 Magnesium 1.6 Total Bilirubin 0.5 Direct Bilirubin 0.0 AST 41 ALT 52 H Alkaline Phosphatase 157 H Total Protein 5.0 L Albumin 2.7 L Discharge Plan Discharge Attending physician on discharge: Jovan Chapa Consulting providers: Mak Chung ; Rolf Sarah Discharging Clinician: Vane Shine Patient Disposition: SNF Activity: no driving and as tolerated Diet: regular Discharge Instructions: -Please not your medications have changed. You should only take your Klonopin as needed. If you take it twice a day, talk to the facility provider about tapering it. -It is very important for you to get help with your drinking. Once you get out of group home, I would strongly advise you to start AA. You have been given information about programs that can help you. Talk to a healthcare provider before quitting alcohol cold turkey or all at once. Do not drive. -Follow up with facility provider in 1-2 weeks about this stay -Worrisome signs and symptoms to come back to the ER for: chest pain, shortness of breath, passing out, confusion, hearing or seeing things, progressive significant weakness, or any other worrisome symptom -Follow up with urology about your urinary retention. Plan to continue the catheter for a few weeks and undergo another voiding trial with their office. Call their office for an appointment Patient Instructions: Antibiotic Form, Acute Kidney Injury (GEN), Alcohol Withdrawal (GEN) Stand Alone Forms: General Discharge Information Follow-up/Referrals: Rolf Sarah MD [Physician] - Call for Appointment [place],Aminta Mc MD [Primary Care Provider] - 1 Week Discharge Medications: New tamsulosin 0.4 mg Capsule 0.4 mg PO QAM Qty: 30 RF: 0 magnesium oxide 400 mg (241.3 mg magnesium) Tablet 400 mg PO DAILY Qty: 30 RF: 0 primidone [Mysoline] 50 mg Tablet 12.5 mg PO HS Qty: 30 RF: 0 thiamine HCl (vitamin B1) 100 mg tablet 100 mg PO DAILY Qty: 30 RF: 0 Continued metoprolol succinate 200 mg tablet extended release 24 hr 200 mg PO DAILY RF: 0 amitriptyline 50 mg tablet 50 mg PO DIRECTED RF: 0 [id number] [Esgic] 50-325-40 mg tablet 1 tablet PO DAILY RF: 0 folic acid 1 mg tablet 1 mg PO DAILY RF: 0 fenofibrate 160 mg tablet 160 mg PO DAILY RF: 0 Changed clonazepam [Klonopin] 0.5 mg tablet 0.5 mg PO BID Qty: 30 RF: 0 Discontinued quetiapine [Seroquel] 100 mg tablet 100 mg PO HS RF: 0 Date of admission: 03/19/21 17:04 Primary Care Provider: [place],Aminta Mc Admitting Provider: Daly Moore V. Attending physician on admission: Vane Shine Condition: Stable Quality VTE Prophylaxis VTE prophylaxis: mechanical ordered
[2021-03-23 14:00] VITALS: BP 94/52; PULSE 83; RESP 14; TEMP 36.4; O2SAT 95
[2021-03-23 14:52] LABS: EDCOVIDSCREEN Negative (Negative)
[2021-03-23] MEDS: FOLIC ACID 1 MG/0.2 ML INJ IV PUSH (15:49)
--- NOTE | 2021-03-23 17:25 | PM.IMPN ---
Progress Note: A&P Assessment and Plan (1) Discharge planning issues: Code(s): Z02.9 - Encounter for administrative examinations, unspecified Status: Acute Assessment and Plan: Pt planned to be discharged to [facility] today but they were unable to accept -plan for d/c tomorrow (2) Wernicke's disease: Code(s): E51.2 - Wernicke's encephalopathy Status: Acute Assessment and Plan: patient has failed to improve with alcohol withdrawal medications and therapy here at the hospital. suspect possible wernickes - he has no tremors or issues while resting in bed and is able to eat and drink fine but is unable to coordinate his muscles to get up out of bed or stand. He also has a tremor with eating but is able to do so. he even sometimes has trouble keeping his head up - spoke with neurology about the case, I do suspect Wernicke syndrome at this time - he has been receiving folic acid and thiamine. - MRI of the brain, cervical spine and lumbar spine without acute pathology - will need SNF and I spoke with the sister* about this -continue primidone for possible essential tremor but seems less likely (3) Alcohol withdrawal syndrome: Qualifiers: Complication of substance-induced condition: uncomplicated Qualified Code(s): F10.230 - Alcohol dependence with withdrawal, uncomplicated Code(s): F10.239 - Alcohol dependence with withdrawal, unspecified Status: Acute Assessment and Plan: Pt needs hospitalization due to severity of his alcohol withdrawal and hx of seizure -Due to his significant alcohol hx, he was started on gabapentin, tegretol, and clonidine during withdraw since he is high risk since he has had a seizure before -These mediations have been weaned off and librium has been as well - continue seizure precautions (4) Acute encephalopathy: Code(s): G93.40 - Encephalopathy, unspecified Status: Acute Assessment and Plan: Resolved. Likely due to severe dehydration, UTI and possibly alcohol withdraw and wernickes -CT brain and MRI had no acute pathology -EEG reviewed -abg with no significant abnormalities -lactic acid and ammonia normal - UTI noted on UA. blood cultures with no growth to date (5) RENETTA (acute kidney injury): Code(s): N17.9 - Acute kidney failure, unspecified Status: Acute Assessment and Plan: Resolved with fluids -likely due to dehydration -renal us okay (6) Alcohol dependence: Code(s): F10.20 - Alcohol dependence, uncomplicated Status: Acute Assessment and Plan: As above (7) Generalized weakness: Code(s): R53.1 - Weakness Status: Acute Assessment and Plan: likely due to dehydration and alcohol abuse - patient unsafe to discharge at this time. Will need SNF -Continue PT and OT (8) UTI (urinary tract infection): Code(s): N39.0 - Urinary tract infection, site not specified Status: Acute Assessment and Plan: ceftriaxone completed (9) Urinary retention: Code(s): R33.9 - Retention of urine, unspecified Status: Acute Assessment and Plan: Likely due to alcohol abuse/neurogenic bladder - cauda equina seems less likely, lumbar MRI without cord compression -Continue flomax, but likely due to neurogenic bladder -follow up with urology outpt Additional Plan calcium now normal, was likely high on admission due to dehydration. Subjective Date/time seen: 03/23/21 17:25 Interval history: Pt is a 50 y/o male here for AMS, dehydration and weakness. patient was seen today and states he is doing okay. He feels weak and tired and is still very shaky. Pt denies nausea, vomiting, fevers, chills, constipation, diarrhea, chest pain, sob, or abdominal pain. His Foreskin has retracted without issue this morning. he denies hallucinations or anxiety. I had a discussion today again that he is unsafe to go home a
[2021-03-23] MEDS: ACETAMINOPHEN 325 MG TABLET 650 MG PO (17:28)
[2021-03-23] MEDS: PRIMIDONE 12.5 MG TABLET PO (21:11)
[2021-03-23 21:48] VITALS: BP 97/56; PULSE 83; RESP 18; TEMP 36.2; O2SAT 94
[2021-03-24 06:00] VITALS: BP 125/77; PULSE 86; RESP 18; TEMP 36.5; O2SAT 100
--- NOTE | 2021-03-24 08:13 | WPDNEUROPN ---
Progress Note: A&P Additional Plan patient will obviously definitely benefit from long-term resident service where he can be involved in the physical therapy occupational therapy, supportive care otherwise in addition to the multi vitamins supplements and abstinence from the alcohol Review of Systems Review of Systems: All systems reviewed & are unremarkable except as noted in HPI and below Exam Narrative: patient continues to be awake alert in obvious moderate distress head normocephalic with no cranial bruit ear nose throat examination normal neck supple with no meningeal signs no cervical bruit no thyromegaly no lymphadenopathy heart regular with no murmur lungs clear with poor respiration abdomen is soft nontender normal bowel sounds neurological is awake alert follows instructions fairly well had difficulties in recent and remote memory pupils round regular feels the vision full extraocular movements full face symmetrical tongue midline motor examination revealed him to have 3 to 4/5 strength Prieb sluggish reflexes and downgoing plantar responses Objective Data Vital Signs Vital Signs: Vital Signs - 24 hr 03/23/21 09:16 03/23/21 14:00 03/23/21 21:48 Temperature 36.4 C 36.2 C L Pulse Rate 81 83 83 Respiratory Rate 18 14 18 Blood Pressure 94/52 L 97/56 L Pulse Oximetry 99 95 94 03/24/21 06:00 Temperature 36.5 C Pulse Rate 86 Respiratory Rate 18 Blood Pressure 125/77 Pulse Oximetry 100 Intake/Output Intake/Output: Intake & Output 03/21/21 03/22/21 03/23/21 03/24/21 23:59 23:59 23:59 23:59 Intake Total 1100 150 390 240 Output Total 1300 2700 975 350 Balance -200 -2550 -585 -110 Meds/Results Medications: Active Medications Generic Name Dose Route Start Last Admin Trade Name Ellisq PRN Reason Stop Dose Admin Acetaminophen 650 mg 03/15/21 20:48 03/23/21 17:28 Acetaminophen 325 Mg Tablet PO 650 mg Q4H PRN Administration Mild Pain (1-3) or Fever Clonidine HCl 0.1 mg 03/21/21 09:00 03/23/21 08:20 Clonidine Hcl 0.1 Mg Tablet PO 0.1 mg DAILY CARLOS Administration Folic Acid 1 mg 03/17/21 09:00 03/23/21 15:49 Folic Acid 1 Mg/0.2 Ml Inj IV PUSH 1 mg QAM CARLOS Administration Lorazepam 1 mg 03/15/21 20:48 Lorazepam Inj (*Crx) 2 Mg/Ml Vial IV PUSH Q6H PRN Seizures Magnesium Oxide 400 mg 03/20/21 09:05 03/23/21 08:08 Magnesium Oxide 400 Mg Tablet PO 400 mg DAILY CARLOS Administration Metoprolol Succinate 200 mg 03/19/21 09:00 03/23/21 08:08 Metoprolol Succinate Ext Rel 100 Mg Tabcr PO 200 mg DAILY CARLOS Administration Multivitamins Therapeutic 1 tablet 03/22/21 09:00 03/23/21 08:09 Multivitamins Therapeutic Tab (*Bkc) PO 1 tablet QAM CARLOS Administration Ondansetron HCl 4 mg 03/15/21 20:48 Ondansetron Inj 4 Mg/2 Ml Vial IV PUSH Q4H PRN Nausea Pantoprazole Sodium 40 mg 03/16/21 11:25 03/23/21 21:11 Pantoprazole Sodium Iv 40 Mg Vial IV PUSH 40 mg Q12HR CARLOS Administration Primidone 12.5 mg 03/22/21 21:00 03/23/21 21:11 Primidone 12.5 Mg Tablet PO 12.5 mg HS CARLOS Administration Tamsulosin HCl 0.4 mg 03/19/21 09:00 03/23/21 08:09 Tamsulosin Hcl 0.4 Mg Capsule PO 0.4 mg QAM CARLOS Administration Thiamine HCl 100 mg 03/16/21 10:55 03/23/21 08:09 Thiamine Hcl 200 Mg/2 Ml Vial IV PUSH 100 mg QAM CARLOS Administration Radiology Results: ITS Impressions Head CT 03/15/21 23:58 IMPRESSION: 1. No acute intracranial findings. Renal Ultrasound 03/16/21 09:41 Impression: 1: Unremarkable renal ultrasound. No stones, masses or hydronephrosis. Brain MRI 03/16/21 13:15 IMPRESSION: 1. No acute intracranial process. Lumbar Spine CT 03/18/21 16:26 IMPRESSION: 1. L5-S1 grade 1 retrolisthesis, moderate left neural foraminal stenosis. 2. Otherwise mild lumbar spondylosis. No acute lumbar findings. 3. Nonspecific lower retroperitoneal fat stranding. No hydron
[2021-03-24] MEDS: FOLIC ACID 1 MG/0.2 ML INJ IV PUSH (08:52)
[2021-03-24] MEDS: MULTIVITAMINS THERAPEUTIC TAB (*BKC) 1 TABLET PO (08:52)
[2021-03-24] MEDS: THIAMINE HCL 200 MG/2 ML VIAL 100 MG IV PUSH (08:52)
[2021-03-24] MEDS: cloNIDine HCL 0.1 MG TABLET PO (08:52)
[2021-03-24] MEDS: TAMSULOSIN HCL 0.4 MG CAPSULE PO (08:52)
[2021-03-24] MEDS: METOPROLOL SUCCINATE EXT REL 100 MG TABCR 200 MG PO (08:52)
[2021-03-24] MEDS: MAGNESIUM OXIDE 400 MG TABLET PO (08:52)
[2021-03-24] MEDS: PANTOPRAZOLE SODIUM IV 40 MG VIAL IV PUSH (08:53)
--- NOTE | 2021-03-24 09:38 | PM.DS ---
DS: Admitting Diagnosis Admitting Diagnosis weakness DS: Discharge Diagnosis Discharge Diagnosis (1) Discharge planning issues: Code(s): Z02.9 - Encounter for administrative examinations, unspecified Status: Acute Assessment and Plan: Patient was accepted to long-term rehab facility this morning. He is discharged in stable condition. (2) Wernicke's disease: Code(s): E51.2 - Wernicke's encephalopathy Status: Acute Assessment and Plan: The patient is a 51-year-old man with a past medical history of alcohol dependence, depression, migraines, who presented to emergency room with generalized weakness. the patient states he has not been eating well and has been drinking alcohol daily and is so weak he has not been able to get up. Initial labs showed he was afebrile, tachycardic at 115 per, increased respiratory rate at 24, elevated blood pressure 157/98, normal oxygenation 100% on room air. Initial labs showed leukocytosis at 13,300, normal coag panel, elevated creatinine at 2.5, BUN 84, Elevated calcium 11.7 showing significant dehydration. urinalysis showed cloudy urine with positive nitrate, 2+ leukocyte esterase, WBCs 30 1-50, 3+ bacteria suspicious for UTI. Urine tox screen was negative, ethyl alcohol was less than 10. Chest x-ray showed no acute cardiopulmonary disease. CT head showed no acute intracranial findings. the patient was admitted into the hospital with acute dehydration, RENETTA and started on IV fluid hydration. Physical and occupational therapy were ordered due to weakness and gait imbalance. During the patient's admission further testing was ordered which included: Renal ultrasound was completed due to significant RENETTA which showed unremarkable renal ultrasound. MRA brain was ordered for further evaluation of generalized weakness, altered mental status and gait imbalance which showed no acute intracranial process. Due to abnormal gait and fall prior to arrival a lumbar spine CT was completed showing L5-S1 grade 1 retrolisthesis, moderate left neural foraminal stenosis. MRI lumbar spine ordered showing No significant central canal stenosis. Normal conus medullaris signal. Cervical MRI also completed showing Mild to moderate cervical spondylosis. Assessment of severity of the facet and uncovertebral osteoarthritis is however somewhat limited by some motion artifact or blurring on multiple sequences. due to negative imaging is suspected that his gait imbalance is due to wernickes from his alcohol dependence. He was given folic acid and thiamine. Neurology was consulted for further evaluation and suspicion for Wernicke as well as generalized weakness from nutritional deficiencies. Neurology stated the patient's EEG was abnormal but at this time he would not be started on any anticonvulsants. He was placed on seizure precautions but he had no witnessed seizure During this hospitalization. (3) Alcohol withdrawal syndrome: Qualifiers: Complication of substance-induced condition: uncomplicated Qualified Code(s): F10.230 - Alcohol dependence with withdrawal, uncomplicated Code(s): F10.239 - Alcohol dependence with withdrawal, unspecified Status: Acute Assessment and Plan: Pt needs hospitalization due to severity of his alcohol withdrawal and hx of seizure. -Due to his significant alcohol hx, he was started on gabapentin, tegretol, and clonidine during withdraw since he is high risk since he has had a seizure before -These mediations have been weaned off and librium has been as well Follow up with Neurology as an outpatient. (4) Acute encephalopathy: Code(s): G93.40 - Encephalopathy, unspecified Status: Acute Assessment and Plan: Resolved. Likely due to severe dehydration, UTI and possibly alcohol withdraw and wernickes -CT brain and MRI had no acute pathology -EEG reviewed -abg with no significant abnormalities -lactic ac
[2021-03-24 14:00] VITALS: BP 110/59; PULSE 86; RESP 16; TEMP 36.4; O2SAT 100
== END 2021-03-24 15:30 | DRG 775 ==
LOC: ANHED 20:46 → ANH3MEDSUR 03-16 06:32
PROVIDERS: Physician Assistant; Admitting Provider Internal Medicine; Emergency Provider Family Medicine; PCP Family Medicine; Visit Provider Physician Assistant
DX: F10.239 Alcohol dependence with withdrawal, unspecified (principal); E51.2 Wernicke's encephalopathy; G93.41 Metabolic encephalopathy; N47.2 Paraphimosis; E86.0 Dehydration; N17.9 Acute kidney failure, unspecified; N39.0 Urinary tract infection, site not specified; R33.8 Other retention of urine; N31.9 Neuromuscular dysfunction of bladder, unspecified; F32.9 Major depressive disorder, single episode, unspecified
CPT/HCPCS: 36415; 36600; 70450; 70551; 71045; 71046; 72131; 72141; 72148; 76775; 80048; 80053; 80076; 80307; 81001; 82140; 82306; 82375; 82570; 82607; 82728; 82746; 82805; 83050; 83540; 83550; 83605; 83735; 83970; 84300; 84443; 84466; 84484; 85014; 85018; 85025; 85027; 85055; 85610; 85730; 87040; 87077; 87086; 87088; 87186; 87426; 93005; 95816; 96361; 96365; 96367; 96374; 96375; 96376; 97110; 97116; 97161; 97165; 97530; 97535; 99285; A9270; C9113; C9803; G0378; G0379; J0696; J3411; J3475; J3480; J7030; J7121

== ENCOUNTER 2021-04-07 06:22 | Emergency (ER) | payer BC, SELFPAY ==
[2021-04-07 06:22] VITALS: BP 110/75; PULSE 91; RESP 15; TEMP 36.4; O2SAT 99
[2021-04-07] MEDS: fentaNYL CITRATE INJ (*CRX) 100 MCG/2 ML VIAL 50 MCG IV PUSH (07:44)
--- NOTE | 2021-04-07 07:44 | ED.MALEGU ---
HPI - Male Genitourinary General Chief complaint: Urogenital-Male Stated complaint: PENIS PAIN Time Seen by Provider: 04/07/21 07:08 History of Present Illness HPI Narrative: 51 yo male presents to the ED for penile pain. He apparently had a wright catheter removed 3 days ago. and has been having some pain since that time. It was noted that the foreskin could not be pulled back over the glans this morning. The patient believes that it has been this way for the whole 3 days. Related Data Home Medications Medication Instructions Recorded Confirmed amitriptyline 50 mg PO DIRECTED 05/11/20 03/15/21 [id number]-[id number]-rwtt 1 tablet PO DAILY 05/11/20 03/15/21 [Esgic] fenofibrate 160 mg PO DAILY 05/11/20 03/15/21 folic acid 1 mg PO DAILY 05/11/20 03/15/21 metoprolol succinate 200 mg PO DAILY 05/11/20 03/15/21 Allergies Allergy/AdvReac Type Severity Reaction Status Date / Time No Known Allergies Allergy Other Uncoded 05/11/20 11:00 Review of Systems Review of Systems: All systems reviewed & are unremarkable except as noted in HPI and below Constitutional: Constitutional: Denies fever(s) ENT: Reports system reviewed and no additional complaints, except as documented Cardiovascular: Cardiovascular: Denies chest pain Respiratory: Respiratory: Denies dyspnea Gastrointestinal: Gastrointestinal: Denies abdominal pain and Denies nausea Genitourinary: Comments: no urinary retention Neurologic: Reports system reviewed and no additional complaints, except as documented [facility] Past Medical History Medical History (Updated 04/07/21 @ 09:31 by Brandon Hanson MD) Alcohol dependence Paraphimosis UTI (urinary tract infection) Family History Family History Father Acute myocardial infarction Other Hypertension Social History Social History Smoking status: Never smoker Second hand tobacco smoke exposure: No Alcohol intake: current Drinks per week: 20 Substance use: current Gender identity (if verbalized by the patient): Male Spiritual care concerns: No Exam Const: General: no acute distress and alert Orientation/consciousness: patient oriented x3 HENMT: Head: normal to inspection Neck: Neck: normal visual inspection Resp: Effort & Inspection: normal respiratory effort Auscultation: clear to auscultation bilaterally Cardio: Rate: regular rate Rhythm: regular rhythm GI: GI Palp: Yes Soft to palpation and No Tenderness to palpation present (GI) : Other: edema to distal penis. foreskin stuck in retracted position. moderately tender, no sign of ischemia. Skin: General skin exam: normal color Neuro: General: patient oriented x3 and moves all extremities Extrem: General: normal to inspection Course Vital Signs Vital signs: Vital Signs Temperature 36.4 C 04/07/21 06:22 Pulse Rate 91 04/07/21 06:22 Respiratory Rate 15 04/07/21 06:22 Blood Pressure 110/75 04/07/21 06:22 Pulse Oximetry 99 04/07/21 06:22 Temperature 36.4 C 04/07/21 06:22 Pulse Rate 91 04/07/21 06:22 Respiratory Rate 15 04/07/21 06:22 Blood Pressure 110/75 04/07/21 06:22 Pulse Oximetry 99 04/07/21 06:22 Procedures Other Procedure Procedure 1: Other Procedure: Paraphimosis reduction analgesia: 50 mcg fentanyl Distal penis wrapped with coban and left in place for 20 minutes to reduce edema. The coban was then removed and the foreskin was reduced without issue. Following procedure pain resolved. MDM - Male Genitourinary MDM Narrative Medical decision making narrative: Pain resolved after reduction of the foreskin. No sign of sichemia. Medical Records Attestation: I reviewed the patient's medical records. Lab Data Attestation: I reviewed the patient's lab results. Result diagrams: 04/07/21 07:44 04/07/21 07:44 Labs: Lab Re
[2021-04-07 07:54] LABS: Basophils Absolute Auto 0.1 K/mm3 (0.0-0.1); Basophils Percent Auto 0.8 % (0.2-1.2); Eosinophils Absolute Auto 0.1 K/mm3 (0-0.3); Eosinophils Percent Auto 0.7 % (0-4.4); Hematocrit 35.7 % (42.0-52.0); Hemoglobin 11.7 g/dL (14.0-18.0); Immature Granulocyte Absolute 0.08 K/mm3 (0.00-0.031); Immature Granulocyte Percent A 1.1 % (0-0.5); Lymphocytes Absolute Auto 1.82 K/mm3 (0.9-3.2); Lymphocytes Percent Auto 24.3 % (18.3-44.2); Mean Corpuscular HGB Conc 32.8 g/dl (32-36); Mean Corpuscular Hemoglobin 30.4 pg (26-34); Mean Corpuscular Volume 92.7 fl (80-100); Mean Platelet Volume 9.3 fl (7.4-10.4); Monocytes Absolute Auto 0.8 K/mm3 (0.1-0.6); Monocytes Percent Auto 10.7 % (2.6-8.5); Neutrophils Absolute Auto 4.7 K/mm3 (1.3-6.7); Neutrophils Percent Auto 62.4 % (45.5-73.1); Platelet Count Result 210 k/mm3 (150-375); Red Blood Count 3.85 M/mm3 (4.6-6.20); Red Cell Distribution Width 12.8 % (11.5-14.5); White Blood Count 7.5 K/mm3 (4.5-10.0)
[2021-04-07 08:02] LABS: Alanine Aminotransferase 33 U/L (4-50); Albumin Level 4.4 g/dL (3.5-5.1); Alkaline Phosphatase 69 U/L (38-126); Anion Gap 12 mmol/L (8-16); Aspartate Amino Transferase 40 U/L (17-59); Bilirubin,Total 0.4 mg/dL (0.2-1.3); Blood Urea Nitrogen 15 mg/dL (9-20); Calcium 9.9 mg/dL (8.4-10.2); Carbon Dioxide 22 mmol/L (22-30); Chloride 99 mmol/L (98-107); Estimated CRCL calculation 56 ml/min; Estimated Glomerular Filt Rate > 60; Glucose 91 mg/dL (65-110); Potassium 4.2 mmol/L (3.4-5.0); Sodium 133 mmol/L (137-145)
[2021-04-07 09:42] LABS: Add Urine Microscopic? YES; Appearance Urine Clear (Clear); Bilirubin Urine Negative (Negative); Blood Urine 1+ (Negative); Color Urine Yellow (Yellow); Glucose Urine UA Negative (Negative); Ketones Urine Negative (Negative); Leukocyte Esterase Ur Negative LEU/UL (Negative); Nitrate Urine Negative (Negative); Protein Urine Negative (Negative); Specific Grav Ur 1.014 (1.001-1.035); Urobilinogen Urine Negative mg/dL (<2.0); WBC Urine 0-3 /hpf
[2021-04-07 09:55] VITALS: BP 108/78; PULSE 100; RESP 16; O2SAT 100
--- NOTE | 2021-04-07 10:05 | PC.NURSE ---
ATTEMPTED TO CALL ROSALBA STEVEN PT'S SISTER AND NEXT OF KIN. NO ANSWER AND VOICE MAILBOX IS FULL.
--- NOTE | 2021-04-07 10:30 | PC.NURSE ---
ATTEMPTED TO CALL ROSALBA AGAIN WITH NO SUCCESS.
--- NOTE | 2021-04-07 10:34 | PC.NURSE ---
CALLED [facility] AND THEY WILL TRY TO ASSIST AND FIND TRANSPORTATION.
--- NOTE | 2021-04-07 10:57 | PC.NURSE ---
ROSALBA HARRIS SISTER OF THE PT CALLED BACK AND STATES THAT SHE IS OUT OF STATE [place] THE [place] GET[place] AND WILL NOT BE AVAILABLE TO PROGRAM SUPPORT SPECIALIST HER BROTHER
--- NOTE | 2021-04-07 11:09 | PC.NURSE ---
CALLED BACK TO [facility] AND THEY STILL HAVE NO WAY TO GET PT BACK BUT ARE ATTEMPTING TO WORK OUT AN OPTION
--- NOTE | 2021-04-07 12:44 | PC.NURSE ---
SPOKE WITH [employer] EMPLOYEE OF [facility] AND THEY HAVE NO WAY OF HELPING WITH TRANSPORTATION FOR THIS PT.
--- NOTE | 2021-04-07 12:57 | PC.NURSE ---
called care coordination to assist with a ride back to the alf. Family unavailable, medical van from alf unavailable.
--- NOTE | 2021-04-07 13:05 | PC.NURSE ---
[facility] said [facility] are working on arranging transport for pt. Asked where to pull up when they arrive.
== END 2021-04-07 13:30 | disposition home or self-care (01) ==
PROVIDERS: Emergency Provider Emergency Medicine; PCP Family Medicine
DX: N47.2 Paraphimosis (principal); Z87.440 Personal history of urinary (tract) infections
CPT/HCPCS: 36415; 80053; 81001; 85025; 96374; 99284; J3010